=== PATIENT | female | born 1955 | race Asian ===

== ENCOUNTER 2016-10-24 07:39 | Inpatient (IN) | payer MEDICARE, MEDICAID ==
[~2016-10-24] VITALS: Ht 160 cm; Wt 71.2 kg
[~2016-10-24 07:39] MED LIST: AZIT1PAC8 PO; CARV25 PO; FLUT1DIS IH; INSNOV SQ; INSU100V12 SQ; LISI-662 PO; LURA80 PO; METF500T4 PO; OMEP20 PO; PRED20 PO; SIMV5TAB6 PO
[2016-10-24 07:51] LABS: GLUCOSE,POINT OF CARE 385 MG/DL (70-110)
[2016-10-24] MEDS ORDERED: SODIUM CHLORIDE 0.9% 500 ML IV ONE (08:00)
[2016-10-24] MEDS ORDERED: INSULIN REGULAR, HUMAN 100 UNITS/ML IVP ONE ×2 (08:00→12:00)
[2016-10-24] MEDS ORDERED: ONDANSETRON HCL 4 MG/2 ML VIAL IVP ONE (08:00)
[2016-10-24] MEDS ORDERED: ALBUTEROL SULFATE 2.5 MG/0.5 ML NEB SOLUTION NEB ONE (08:15)
[2016-10-24] MEDS ORDERED: MORPHINE SULFATE 2 MG/ML SYRINGE IVP ONE (08:15)
[2016-10-24] MEDS ORDERED: MORPHINE SULFATE 4 MG/ML SYRINGE IVP ONE (08:15)
[2016-10-24] MEDS ORDERED: IPRATROPIUM BROMIDE 0.5 MG/2.5 ML NEB SOLUTION NEB ONE (08:15)
[2016-10-24 08:30] LABS: BASOPHILS # (AUTO) 0.03 K/uL (0.00-0.20); BASOPHILS % (AUTO) 0.4 % (0.0-2.0); EOSINOPHILS # (AUTO) 0.07 K/uL (0.00-0.70); EOSINOPHILS % (AUTO) 1.06 % (1.0-6.0); HEMATOCRIT 42.9 % (36-46); HEMOGLOBIN 14.5 g/dL (12.0-16.0); LYMPHOCYTES # (AUTO) 1.7 K/uL (1.0-4.8); LYMPHOCYTES % (AUTO) 24.8 % (22.0-44.0); MEAN CORPUSCULAR HEMOGLOBIN 28.5 pg (26.0-34.0); MEAN CORPUSCULAR HGB CONC 33.9 G/dL (31.0-37.0); MEAN CORPUSCULAR VOLUME 84 fL (80-100); MONOCYTES # (AUTO) 0.5 K/uL (0.1-1.0); MONOCYTES % (AUTO) 7.9 % (2.0-9.0); NEUTROPHILS # (AUTO) 4.4 K/uL (1.8-7.7); NEUTROPHILS % (AUTO) 65.9 % (40.0-70.0); PLATELET COUNT (AUTO) 283 K/uL (150-450); RED CELL DISTRIBUTION WIDTH 14.6 % (11.5-14.5); WHITE BLOOD COUNT (AUTO) 6.7 K/uL (4.5-11.0)
[2016-10-24 08:37] LABS: CALCIUM, TOTAL 8.7 mg/dL (8.8-10.5); CREATININE 1.15 mg/dL (0.60-1.30); POTASSIUM 3.8 mmol/L (3.5-5.1)
[2016-10-24 08:43] LABS: ALBUMIN 2.7 g/dL (3.4-5.0); BILIRUBIN,TOTAL 0.6 mg/dL (0.1-1.0); TOTAL PROTEIN, SERUM 7.7 g/dL (6.4-8.2)
[2016-10-24] MEDS ORDERED: 0.9% SODIUM CHLORIDE 5 ML NEB SOLUTION NEB ONE ×2 (09:02→19:02)
[2016-10-24 10:06] LABS: APPEARANCE,URINE CLEAR (CLEAR); GLUCOSE, URINE (UA) >=1000 mg/dL (NEGATIVE); KETONES,URINE 15 mg/dL (NEGATIVE); LEUKOCYTE ESTERASE ,URINE NEGATIVE (NEGATIVE); OCCULT BLOOD,URINE NEGATIVE (NEGATIVE); PROTEIN,URINE SEE CONFIRM (NEGATIVE)
[2016-10-24 10:08] LABS: ADD UA MICROSCOPIC YES
[2016-10-24 10:21] LABS: SULFOSALICYLIC ACID,URINE 2+ (Negative)
[2016-10-24 10:22] LABS: RBC,URINE 0-2 /HPF (0-2); SQUAMOUS EPITHELIAL CELL,UR Few /LPF (None Seen)
[2016-10-24] MEDS ORDERED: FUROSEMIDE 40 MG/4 ML VIAL IVP ONE (11:00)
[2016-10-24 12:01] LABS: GLUCOSE,POINT OF CARE 421 MG/DL (70-110)
[2016-10-24] MEDS ORDERED: INSULIN ASPART 100 UNITS/ML SQ PRN ×2 (12:30→15:30)
[2016-10-24] MEDS ORDERED: 0.9% SODIUM CHLORIDE 10 ML SYRINGE IVP PRN (12:30)
[2016-10-24] MEDS ORDERED: ONDANSETRON HCL 4 MG/2 ML VIAL IVP PRN ×2 (12:30→15:30)
[2016-10-24] MEDS ORDERED: DEXTROSE 50%-WATER 25 GM/50 ML SYRINGE IVP PRN ×2 (12:30→15:30)
[2016-10-24] MEDS ORDERED: ACETAMINOPHEN 325 MG TABLET PO PRN (12:30)
[2016-10-24 12:55] VITALS: BP 102/67
[2016-10-24] MEDS ORDERED: PNEUMOCOCCAL VACCINE POLYVALENT 0.5 ML VIAL [PPSV23] IM ONE (13:00)
[2016-10-24] MEDS ORDERED: INFLUENZA VIRUS VACCINE QVS 2016-17 (3YR+)/PF 60 MCG/0.5 ML SYRINGE IM ONE (13:00)
[2016-10-24] MEDS ORDERED: IPRATROPIUM BROMIDE 0.5 MG/2.5 ML NEB SOLUTION NEB SCH (15:00)
[2016-10-24] MEDS ORDERED: ALBUTEROL SULFATE 2.5 MG/0.5 ML NEB SOLUTION NEB SCH (15:00)
[2016-10-24 15:06] VITALS: BP 115/76
[2016-10-24] MEDS ORDERED: ALBUTEROL SULFATE 2.5 MG/0.5 ML NEB SOLUTION NEB PRN (15:30)
[2016-10-24] MEDS ORDERED: ZOLPIDEM TARTRATE 5 MG TABLET PO PRN (15:30)
[2016-10-24] MEDS ORDERED: MORPHINE SULFATE 4 MG/ML SYRINGE IVP PRN (15:30)
[2016-10-24] MEDS ORDERED: BISACODYL 10 MG RECTAL RECTAL SUPPOSITORY PR PRN (15:30)
[2016-10-24] MEDS ORDERED: IPRATROPIUM BROMIDE 0.5 MG/2.5 ML NEB SOLUTION NEB PRN (15:30)
[2016-10-24] MEDS ORDERED: HYDROCODONE/ACETAMINOPHEN 5-325 MG TABLET PO PRN (15:30)
[2016-10-24] MEDS ORDERED: MAGNESIUM HYDROXIDE SUSPENSION 30 ML UDCUP PO PRN (15:30)
[2016-10-24] MEDS: HEPARIN SODIUM,PORCINE 5,000 UNITS/ML VIAL SQ SCH (16:30)
[2016-10-24] MEDS: ACETAMINOPHEN 325 MG TABLET PO PRN (16:59)
[2016-10-24] MEDS ORDERED: INSULIN ASPART 100 UNITS/ML SQ ONE (17:30)
[2016-10-24] MEDS: MethylPREDNISolone SOD SUCC 125 MG/2 ML VIAL IVP SCH (17:38)
[2016-10-24] MEDS: IPRATROPIUM BROMIDE 0.5 MG/2.5 ML NEB SOLUTION NEB SCH ×2 (19:08→22:39)
[2016-10-24] MEDS: ALBUTEROL SULFATE 2.5 MG/0.5 ML NEB SOLUTION NEB SCH ×2 (19:09→22:39)
[2016-10-24 19:56] VITALS: BP 114/83
[2016-10-24] MEDS: DOCUSATE SODIUM 100 MG CAPSULE PO SCH (20:13)
[2016-10-24] MEDS: SIMVASTATIN 5 MG TABLET PO SCH (20:13)
[2016-10-24] MEDS: LURASIDONE HCL 80 MG TABLET PO SCH (20:13)
[2016-10-24] MEDS: CARVEDILOL 25 MG TABLET PO SCH (20:13)
[2016-10-24] MEDS: INSULIN DETEMIR 100 UNITS/ML SQ SCH (20:14)
[2016-10-24] MEDS: INSULIN ASPART 100 UNITS/ML SQ PRN (20:18)
[2016-10-25] VITALS (8 sets, daily range): BP systolic 94–112; BP diastolic 45–74
[2016-10-25] MEDS: HEPARIN SODIUM,PORCINE 5,000 UNITS/ML VIAL SQ SCH ×4 (01:45→23:40)
[2016-10-25] MEDS: MethylPREDNISolone SOD SUCC 125 MG/2 ML VIAL IVP SCH ×5 (01:46→23:35)
[2016-10-25] MEDS: IPRATROPIUM BROMIDE 0.5 MG/2.5 ML NEB SOLUTION NEB SCH ×6 (03:00→23:12)
[2016-10-25] MEDS: ALBUTEROL SULFATE 2.5 MG/0.5 ML NEB SOLUTION NEB SCH ×6 (03:00→23:12)
[2016-10-25] MEDS: INSULIN ASPART 100 UNITS/ML SQ PRN ×3 (05:42→20:39)
[2016-10-25 07:37] LABS: BASOPHILS # (AUTO) 0.03 K/uL (0.00-0.20); BASOPHILS % (AUTO) 0.5 % (0.0-2.0); EOSINOPHILS % (AUTO) 0 % (1.0-6.0); HEMATOCRIT 41.9 % (36-46); HEMOGLOBIN 13.7 g/dL (12.0-16.0); LYMPHOCYTES # (AUTO) 0.8 K/uL (1.0-4.8); LYMPHOCYTES % (AUTO) 12.2 % (22.0-44.0); MEAN CORPUSCULAR HEMOGLOBIN 27.9 pg (26.0-34.0); MEAN CORPUSCULAR HGB CONC 32.7 G/dL (31.0-37.0); MEAN CORPUSCULAR VOLUME 85 fL (80-100); MONOCYTES % (AUTO) 0.4 % (2.0-9.0); NEUTROPHILS # (AUTO) 5.7 K/uL (1.8-7.7); PLATELET COUNT (AUTO) 292 K/uL (150-450); RED BLOOD CELL COUNT(AUTO) 4.91 MIL/uL (4.00-5.20); WHITE BLOOD COUNT (AUTO) 6.6 K/uL (4.5-11.0)
[2016-10-25 07:39] LABS: NEUTROPHILS % (AUTO) 86.9 % (40.0-70.0)
[2016-10-25] MEDS: PANTOPRAZOLE SODIUM 40 MG/VIAL IVP SCH (07:53)
[2016-10-25] MEDS: DOCUSATE SODIUM 100 MG CAPSULE PO SCH ×2 (07:54→20:43)
[2016-10-25] MEDS: ACETAMINOPHEN 325 MG TABLET PO PRN ×2 (08:00→13:55)
[2016-10-25 08:08] LABS: ALBUMIN 2.5 g/dL (3.4-5.0); BILIRUBIN,TOTAL 0.5 mg/dL (0.1-1.0); CALCIUM, TOTAL 8.6 mg/dL (8.8-10.5); CREATININE 1.12 mg/dL (0.60-1.30); POTASSIUM 3.8 mmol/L (3.5-5.1); TOTAL PROTEIN, SERUM 7.5 g/dL (6.4-8.2)
[2016-10-25] MEDS: LISINOPRIL 20 MG TABLET PO SCH (09:00)
[2016-10-25] MEDS: FUROSEMIDE 20 MG TABLET PO SCH (09:55)
[2016-10-25] MEDS: SPIRONOLACTONE 25 MG TABLET PO SCH (09:56)
[2016-10-25] MEDS: INSULIN DETEMIR 100 UNITS/ML SQ SCH ×2 (10:01→20:40)
[2016-10-25] MEDS: CARVEDILOL 25 MG TABLET PO SCH ×2 (13:54→20:10)
[2016-10-25] MEDS ORDERED: INSULIN ASPART 100 UNITS/ML SQ ONE (18:00)
[2016-10-25] MEDS: SIMVASTATIN 5 MG TABLET PO SCH (20:09)
[2016-10-25] MEDS: LURASIDONE HCL 80 MG TABLET PO SCH (20:09)
[2016-10-26] MEDS: IPRATROPIUM BROMIDE 0.5 MG/2.5 ML NEB SOLUTION NEB SCH ×6 (03:05→23:00)
[2016-10-26] MEDS: ALBUTEROL SULFATE 2.5 MG/0.5 ML NEB SOLUTION NEB SCH ×6 (03:05→23:00)
[2016-10-26 04:07] LABS: GLUCOSE COMMENT 1 Received Meds; GLUCOSE,POINT OF CARE 521 MG/DL (70-110)
[2016-10-26 04:07] LABS: GLUCOSE,POINT OF CARE 379 MG/DL (70-110)
[2016-10-26 04:30] VITALS: BP 100/74
[2016-10-26] MEDS: MethylPREDNISolone SOD SUCC 125 MG/2 ML VIAL IVP SCH (05:48)
[2016-10-26] MEDS: INSULIN ASPART 100 UNITS/ML SQ PRN ×3 (05:52→20:59)
[2016-10-26 07:08] LABS: BASOPHILS # (AUTO) 0.06 K/uL (0.00-0.20); BASOPHILS % (AUTO) 0.4 % (0.0-2.0); EOSINOPHILS % (AUTO) 0.01 % (1.0-6.0); HEMATOCRIT 39.3 % (36-46); HEMOGLOBIN 12.9 g/dL (12.0-16.0); LYMPHOCYTES % (AUTO) 6.2 % (22.0-44.0); MEAN CORPUSCULAR HEMOGLOBIN 28.1 pg (26.0-34.0); MEAN CORPUSCULAR HGB CONC 32.9 G/dL (31.0-37.0); MEAN CORPUSCULAR VOLUME 85 fL (80-100); MONOCYTES # (AUTO) 0.3 K/uL (0.1-1.0); NEUTROPHILS # (AUTO) 14.7 K/uL (1.8-7.7); PLATELET COUNT (AUTO) 303 K/uL (150-450); RED CELL DISTRIBUTION WIDTH 15.3 % (11.5-14.5); WHITE BLOOD COUNT (AUTO) 16.1 K/uL (4.5-11.0)
[2016-10-26 07:18] LABS: ALBUMIN 2.6 g/dL (3.4-5.0); BILIRUBIN,TOTAL 0.3 mg/dL (0.1-1.0); CALCIUM, TOTAL 8.8 mg/dL (8.8-10.5); CREATININE 1.16 mg/dL (0.60-1.30); POTASSIUM 4.1 mmol/L (3.5-5.1); TOTAL PROTEIN, SERUM 7.3 g/dL (6.4-8.2)
[2016-10-26 07:32] LABS: NEUTROPHILS % (AUTO) 91.5 % (40.0-70.0)
[2016-10-26 08:12] VITALS: BP 109/59
[2016-10-26] MEDS: PANTOPRAZOLE SODIUM 40 MG/VIAL IVP SCH (08:31)
[2016-10-26] MEDS: DOCUSATE SODIUM 100 MG CAPSULE PO SCH ×2 (08:31→20:52)
[2016-10-26] MEDS: LISINOPRIL 20 MG TABLET PO SCH (08:31)
[2016-10-26] MEDS: FUROSEMIDE 20 MG TABLET PO SCH (08:31)
[2016-10-26] MEDS: SPIRONOLACTONE 25 MG TABLET PO SCH (08:31)
[2016-10-26] MEDS: HEPARIN SODIUM,PORCINE 5,000 UNITS/ML VIAL SQ SCH ×3 (08:32→23:48)
[2016-10-26] MEDS: INSULIN DETEMIR 100 UNITS/ML SQ SCH ×2 (08:40→20:58)
[2016-10-26] MEDS: CARVEDILOL 25 MG TABLET PO SCH ×2 (09:00→21:00)
[2016-10-26] MEDS ORDERED: MethylPREDNISolone SOD SUCC 125 MG/2 ML VIAL IVP SCH (12:00)
[2016-10-26] MEDS ORDERED: INSULIN ASPART 100 UNITS/ML SQ ONE (12:00)
[2016-10-26 12:18] VITALS: BP 98/51
[2016-10-26 16:03] VITALS: BP 108/68
[2016-10-26] MEDS ORDERED: AZIT250T6 PO ×2 (17:42→17:43)
[2016-10-26] MEDS ORDERED: OMEP20 PO (17:43)
[2016-10-26] MEDS ORDERED: INSNOV SQ (17:43)
[2016-10-26] MEDS ORDERED: METF500T4 PO (17:43)
[2016-10-26] MEDS ORDERED: FLUT1DIS IH (17:43)
[2016-10-26] MEDS: PredniSONE 20 MG TABLET PO SCH (17:57)
[2016-10-26 18:08] LABS: GLUCOSE,POINT OF CARE 387 MG/DL (70-110)
[2016-10-26 20:03] VITALS: BP 100/57
[2016-10-26] MEDS: SIMVASTATIN 5 MG TABLET PO SCH (20:52)
[2016-10-26] MEDS: LURASIDONE HCL 80 MG TABLET PO SCH (20:52)
[2016-10-26 23:54] VITALS: BP 110/65
[2016-10-27] MEDS: ALBUTEROL SULFATE 2.5 MG/0.5 ML NEB SOLUTION NEB SCH ×4 (02:31→14:59)
[2016-10-27] MEDS: IPRATROPIUM BROMIDE 0.5 MG/2.5 ML NEB SOLUTION NEB SCH ×4 (02:31→14:59)
[2016-10-27 04:40] VITALS: BP 127/70
[2016-10-27] MEDS: INSULIN ASPART 100 UNITS/ML SQ PRN ×2 (06:10→12:06)
[2016-10-27 07:12] LABS: GLUCOSE COMMENT 1 Received Meds; GLUCOSE,POINT OF CARE 443 MG/DL (70-110)
[2016-10-27 07:12] LABS: GLUCOSE COMMENT 1 Received Meds; GLUCOSE,POINT OF CARE 120 MG/DL (70-110)
[2016-10-27 07:31] VITALS: BP 107/71
[2016-10-27 07:58] LABS: EOSINOPHILS % (AUTO) 0 % (1.0-6.0); HEMATOCRIT 39.8 % (36-46); HEMOGLOBIN 12.7 g/dL (12.0-16.0); LYMPHOCYTES # (AUTO) 1.3 K/uL (1.0-4.8); LYMPHOCYTES % (AUTO) 8.9 % (22.0-44.0); MEAN CORPUSCULAR HEMOGLOBIN 27.5 pg (26.0-34.0); MEAN CORPUSCULAR HGB CONC 31.8 G/dL (31.0-37.0); MEAN CORPUSCULAR VOLUME 87 fL (80-100); MONOCYTES # (AUTO) 0.8 K/uL (0.1-1.0); MONOCYTES % (AUTO) 5.2 % (2.0-9.0); PLATELET COUNT (AUTO) 291 K/uL (150-450); RED CELL DISTRIBUTION WIDTH 14.8 % (11.5-14.5); WHITE BLOOD COUNT (AUTO) 15.1 K/uL (4.5-11.0)
[2016-10-27 08:14] LABS: NEUTROPHILS % (AUTO) 85.9 % (40.0-70.0)
[2016-10-27 08:29] LABS: ALBUMIN 2.6 g/dL (3.4-5.0); BILIRUBIN,TOTAL 0.3 mg/dL (0.1-1.0); CALCIUM, TOTAL 8.8 mg/dL (8.8-10.5); CREATININE 1.11 mg/dL (0.60-1.30); POTASSIUM 3.6 mmol/L (3.5-5.1)
[2016-10-27] MEDS: SPIRONOLACTONE 25 MG TABLET PO SCH (08:39)
[2016-10-27] MEDS: DOCUSATE SODIUM 100 MG CAPSULE PO SCH (08:39)
[2016-10-27] MEDS: PANTOPRAZOLE SODIUM 40 MG/VIAL IVP SCH (08:39)
[2016-10-27] MEDS: HEPARIN SODIUM,PORCINE 5,000 UNITS/ML VIAL SQ SCH (08:39)
[2016-10-27] MEDS: FUROSEMIDE 20 MG TABLET PO SCH (08:39)
[2016-10-27] MEDS: PredniSONE 20 MG TABLET PO SCH (08:39)
[2016-10-27] MEDS: LISINOPRIL 20 MG TABLET PO SCH (08:39)
[2016-10-27] MEDS: CARVEDILOL 25 MG TABLET PO SCH (08:48)
[2016-10-27 08:53] LABS: HEMOGLOBIN A1C 13.1 % (4.5-6.2)
[2016-10-27] MEDS ORDERED: INSULIN DETEMIR 100 UNITS/ML SQ SCH (09:00)
[2016-10-27 09:22] LABS: GLUCOSE COMMENT 1 Received Meds; GLUCOSE,POINT OF CARE 245 MG/DL (70-110)
[2016-10-27 11:23] VITALS: BP 128/87
[2016-10-27] MEDS ORDERED: SPIR25 PO (14:45)
[2016-10-27] MEDS ORDERED: ADV100 IH (14:45)
[2016-10-27 15:00] VITALS: BP 116/66
[2016-10-27 23:42] LABS: GLUCOSE COMMENT 1 Received Meds; GLUCOSE,POINT OF CARE 198 MG/DL (70-110)
== END 2016-10-27 15:10 | disposition home or self-care (01) | DRG 291 ==
LOC: EMS 07:40 → 5S 11:44
PROVIDERS: ADMIT Hospitalist; ATTEND Hospitalist
DX: I11.0 Hypertensive heart disease with heart failure (principal); E43 Unspecified severe protein-calorie malnutrition; J44.1 Chronic obstructive pulmonary disease with (acute) exacerbation; J45.901 Unspecified asthma with (acute) exacerbation; I50.23 Acute on chronic systolic (congestive) heart failure; Z53.29 Procedure and treatment not carried out because of patient's decision for other reasons; E78.5 Hyperlipidemia, unspecified; I25.10 Atherosclerotic heart disease of native coronary artery without angina pectoris; E78.00 Pure hypercholesterolemia, unspecified; E11.65 Type 2 diabetes mellitus with hyperglycemia; Z88.8 Allergy status to other drugs, medicaments and biological substances; Z88.5 Allergy status to narcotic agent; Z79.4 Long term (current) use of insulin; Z79.899 Other long term (current) drug therapy; Z68.27 Body mass index [BMI] 27.0-27.9, adult; Z98.51 Tubal ligation status; Z95.0 Presence of cardiac pacemaker; Z98.890 Other specified postprocedural states
CPT/HCPCS: 74022; 82962; 83036; 87081; 90471; 93005; 94640; 96361; 96374; 96375; 96376; 99285; C9113; J1644; J1815; J1940; J2270; J2405; J2930; J7040

== ENCOUNTER 2016-10-28 00:34 | Inpatient (IN) | payer MEDICARE, MEDICAID ==
[~2016-10-28] VITALS: Ht 160 cm; Wt 72.9 kg
[~2016-10-28 00:34] MED LIST changes: +ADV100 IH; -AZIT1PAC8 PO; -PRED20 PO; +SPIR25 PO
[2016-10-28 00:52] LABS: GLUCOSE,POINT OF CARE 224 MG/DL (70-110)
[2016-10-28] MEDS ORDERED: ALBUTEROL SULFATE 2.5 MG/0.5 ML NEB SOLUTION NEB ONE (01:15)
[2016-10-28] MEDS ORDERED: IPRATROPIUM BROMIDE 0.5 MG/2.5 ML NEB SOLUTION NEB ONE (01:15)
[2016-10-28 01:16] LABS: BASOPHILS % (AUTO) 0.1 % (0.0-2.0); EOSINOPHILS % (AUTO) 0 % (1.0-6.0); HEMATOCRIT 43.1 % (36-46); HEMOGLOBIN 13.8 g/dL (12.0-16.0); LYMPHOCYTES # (AUTO) 1.5 K/uL (1.0-4.8); LYMPHOCYTES % (AUTO) 8.9 % (22.0-44.0); MEAN CORPUSCULAR HEMOGLOBIN 27.4 pg (26.0-34.0); MEAN CORPUSCULAR HGB CONC 31.9 G/dL (31.0-37.0); MEAN CORPUSCULAR VOLUME 86 fL (80-100); MONOCYTES # (AUTO) 0.5 K/uL (0.1-1.0); MONOCYTES % (AUTO) 2.8 % (2.0-9.0); NEUTROPHILS # (AUTO) 14.8 K/uL (1.8-7.7); PLATELET COUNT (AUTO) 317 K/uL (150-450); RED BLOOD CELL COUNT(AUTO) 5.02 MIL/uL (4.00-5.20); RED CELL DISTRIBUTION WIDTH 15.1 % (11.5-14.5); WHITE BLOOD COUNT (AUTO) 16.7 K/uL (4.5-11.0)
[2016-10-28 01:22] LABS: NEUTROPHILS % (AUTO) 88.2 % (40.0-70.0)
[2016-10-28 01:29] LABS: ANION GAP 11 mmol/L (8-16); CALCIUM, TOTAL 8.5 mg/dL (8.8-10.5); CARBON DIOXIDE 27 mmol/L (22-29); CHLORIDE 99 mmol/L (98-107); CREATININE 1.25 mg/dL (0.60-1.30); GLOMERULAR FILTR. RATE CALC 43 mL/min (>60); POTASSIUM 3.8 mmol/L (3.5-5.1); SODIUM SERUM 137 mmol/L (136-145); UREA NITROGEN, BLOOD 30 mg/dL (7-18)
[2016-10-28 01:35] LABS: ALANINE AMINOTRANSFERASE 24 U/L (12-78); ALBUMIN 2.9 g/dL (3.4-5.0); ASPARTATE AMINOTRANSFERASE 17 U/L (15-37); BILIRUBIN,TOTAL 0.4 mg/dL (0.1-1.0); CREATINE KINASE, TOTAL 66 U/L (26-192); TOTAL PROTEIN, SERUM 7.5 g/dL (6.4-8.2)
[2016-10-28 01:59] LABS: GLUCOSE, URINE (UA) 250 mg/dL (NEGATIVE); KETONES,URINE NEGATIVE (NEGATIVE); LEUKOCYTE ESTERASE ,URINE LARGE (NEGATIVE); OCCULT BLOOD,URINE TRACE (NEGATIVE); PROTEIN,URINE POS 1+ (NEGATIVE)
[2016-10-28 02:00] LABS: ADD UA MICROSCOPIC YES; APPEARANCE,URINE HAZY (CLEAR)
[2016-10-28] MEDS ORDERED: LEVALBUTEROL HCL 1.25 MG/0.5 ML NEB SOLUTION NEB ONE ×2 (02:00→03:00)
[2016-10-28] MEDS ORDERED: 0.9% SODIUM CHLORIDE 5 ML NEB SOLUTION NEB ONE ×2 (02:06→03:03)
[2016-10-28 02:33] LABS: SQUAMOUS EPITHELIAL CELL,UR Few /LPF (None Seen)
[2016-10-28 02:40] LABS: B-TYPE NATRIURETIC PEPTIDE 1030 pg/mL (0-100)
[2016-10-28] MEDS ORDERED: LORazepam 2 MG/ML VIAL ONE (02:49)
[2016-10-28] MEDS ORDERED: LORazepam 2 MG/ML VIAL IVP ONE ×2 (03:00→04:15)
[2016-10-28] MEDS ORDERED: FUROSEMIDE 40 MG/4 ML VIAL IVP ONE (03:00)
[2016-10-28 04:30] LABS: ABG A-A DIFF O2 145.1 mmHg (10-20.0); ABG BASE EXCESS 6.1 mmol/L (-2.0-3.0); ABG OXYHEMOGLOBIN 96.5 % (94.0-100.0); ABG PCO2 35 mmHg (35-45); ABG PH 7.529 (7.35-7.450); TEMPERATURE, FAHRENHEIT, BG 98.6 FAHREN (96.0-98.6)
[2016-10-28 04:31] LABS: ALLEN TEST, BLOOD GAS POS; IPAP, BG 14 cm H2O
[2016-10-28] MEDS ORDERED: MIDAZOLAM HCL 5 MG/ML VIAL ONE (05:43)
[2016-10-28] MEDS ORDERED: METOPROLOL TARTRATE 5 MG/5 ML VIAL ONE ×2 (05:52→06:01)
[2016-10-28] MEDS ORDERED: AMIODARONE HCL 360 MG in DEXTROSE 5%-WATER 242.8 ML IV ONE (06:00)
[2016-10-28] MEDS ORDERED: POTASSIUM CHL 10 MEQ/WATER 50 ML IV ONE (06:15)
[2016-10-28] MEDS ORDERED: ESMOLOL HCL 2500 MG/NACL 250 ML IV PRN (06:30)
[2016-10-28] MEDS ORDERED: ESMOLOL HCL 10 MG/ML 10 ML VIAL IVP ONE (06:30)
[2016-10-28 08:01] LABS: ABG A-A DIFF O2 132.7 mmHg (10-20.0); ABG BASE EXCESS 2.2 mmol/L (-2.0-3.0); ABG HCO3 27.6 mmol/L (22.0-26.0); ABG OXYHEMOGLOBIN 97.7 % (94.0-100.0); ABG PCO2 27 mmHg (35-45); ABG PH 7.574 (7.35-7.450); TEMPERATURE, FAHRENHEIT, BG 98.6 FAHREN (96.0-98.6)
[2016-10-28] MEDS: FUROSEMIDE 40 MG/4 ML VIAL IVP SCH ×2 (08:01→21:37)
[2016-10-28 08:03] LABS: ALLEN TEST, BLOOD GAS Positive
[2016-10-28 08:04] LABS: IPAP, BG 16 cm H2O
[2016-10-28] MEDS: AMIODARONE HCL 200 MG TABLET PO SCH ×4 (09:00→21:37)
[2016-10-28] MEDS ORDERED: SODIUM CHLORIDE 0.9% 250 ML IV ONE (10:30)
[2016-10-28] MEDS ORDERED: PHENYLEPHRINE 200 MG/D5%-WATER 250 ML IV PRN (10:45)
[2016-10-28] MEDS ORDERED: AMIODARONE HCL 540 MG in DEXTROSE 5%-WATER 239.2 ML IV ONE (12:00)
[2016-10-28] MEDS ORDERED: HEPARIN SODIUM 25000 UNITS/D5W 250 ML IV PRN ×2 (12:00→12:04)
[2016-10-28] MEDS ORDERED: HEPARIN SODIUM,PORCINE 5,000 UNITS/ML VIAL IVP ONE (12:15)
[2016-10-28] MEDS ORDERED: HEPARIN SODIUM,PORCINE 5,000 UNITS/ML VIAL IVP PRN ×2 (12:15)
[2016-10-28 12:41] LABS: BASOPHILS % (AUTO) 0.1 % (0.0-2.0); EOSINOPHILS % (AUTO) 0 % (1.0-6.0); HEMATOCRIT 42.2 % (36-46); HEMOGLOBIN 13.7 g/dL (12.0-16.0); LYMPHOCYTES # (AUTO) 1.2 K/uL (1.0-4.8); LYMPHOCYTES % (AUTO) 5.4 % (22.0-44.0); MEAN CORPUSCULAR HEMOGLOBIN 27.7 pg (26.0-34.0); MEAN CORPUSCULAR HGB CONC 32.6 G/dL (31.0-37.0); MEAN CORPUSCULAR VOLUME 85 fL (80-100); MONOCYTES # (AUTO) 1.2 K/uL (0.1-1.0); MONOCYTES % (AUTO) 5.2 % (2.0-9.0); NEUTROPHILS # (AUTO) 20.4 K/uL (1.8-7.7); NEUTROPHILS % (AUTO) 89.3 % (40.0-70.0); PLATELET COUNT (AUTO) 281 K/uL (150-450); RBC MORPHOLOGY COMMENT NORMAL RBC MORPH; RED BLOOD CELL COUNT(AUTO) 4.97 MIL/uL (4.00-5.20); RED CELL DISTRIBUTION WIDTH 14.8 % (11.5-14.5); WHITE BLOOD COUNT (AUTO) 22.9 K/uL (4.5-11.0)
[2016-10-28 12:51] LABS: PROTHROMBIN TIME 10.9 SEC (9.4-11.6)
[2016-10-28] MEDS ORDERED: MAGNESIUM HYDROXIDE SUSPENSION 30 ML UDCUP PO PRN (13:00)
[2016-10-28] MEDS ORDERED: ZOLPIDEM TARTRATE 5 MG TABLET PO PRN (13:00)
[2016-10-28] MEDS ORDERED: BISACODYL 10 MG RECTAL RECTAL SUPPOSITORY PR PRN (13:00)
[2016-10-28] MEDS ORDERED: ONDANSETRON HCL 4 MG/2 ML VIAL IVP PRN (13:00)
[2016-10-28] MEDS ORDERED: CefTRIAXone 1 GM/DEXTROSE 50 ML IV SCH (13:00)
[2016-10-28] MEDS ORDERED: HYDROCODONE/ACETAMINOPHEN 5-325 MG TABLET PO PRN (13:00)
[2016-10-28] MEDS: CefTRIAXone 1 GM/DEXTROSE 50 ML IV SCH (14:38)
[2016-10-28] MEDS: HEPARIN SODIUM,PORCINE 5,000 UNITS/ML VIAL SQ SCH (16:00)
[2016-10-28 17:00] VITALS: BP 140/90
[2016-10-28 20:00] VITALS: BP 144/91
[2016-10-28] MEDS: DOCUSATE SODIUM 100 MG CAPSULE PO SCH ×2 (21:00→21:37)
[2016-10-28] MEDS: SIMVASTATIN 5 MG TABLET PO SCH (21:00)
[2016-10-28] MEDS: INSULIN DETEMIR 100 UNITS/ML SQ SCH (21:40)
[2016-10-28] MEDS ORDERED: 0.9% SODIUM CHLORIDE 10 ML SYRINGE IVP PRN (22:15)
[2016-10-29] VITALS (20 sets, daily range): BP systolic 63–148; BP diastolic 41–87
[2016-10-29] MEDS: MORPHINE SULFATE 2 MG/ML SYRINGE IVP PRN ×2 (03:44→14:09)
[2016-10-29] MEDS: AMIODARONE HCL 750 MG in DEXTROSE 5%-WATER 485 ML IV SCH (05:39)
[2016-10-29 05:47] LABS: BASOPHILS % (AUTO) 0.1 % (0.0-2.0); EOSINOPHILS % (AUTO) 0.1 % (1.0-6.0); HEMATOCRIT 43.4 % (36-46); HEMOGLOBIN 13.9 g/dL (12.0-16.0); LYMPHOCYTES # (AUTO) 1.1 K/uL (1.0-4.8); LYMPHOCYTES % (AUTO) 8.3 % (22.0-44.0); MEAN CORPUSCULAR HEMOGLOBIN 27.5 pg (26.0-34.0); MEAN CORPUSCULAR VOLUME 86 fL (80-100); MONOCYTES # (AUTO) 0.6 K/uL (0.1-1.0); MONOCYTES % (AUTO) 4.7 % (2.0-9.0); PLATELET COUNT (AUTO) 218 K/uL (150-450); RED BLOOD CELL COUNT(AUTO) 5.04 MIL/uL (4.00-5.20); RED CELL DISTRIBUTION WIDTH 15.4 % (11.5-14.5); WHITE BLOOD COUNT (AUTO) 13.8 K/uL (4.5-11.0)
[2016-10-29 06:04] LABS: ALBUMIN 2.5 g/dL (3.4-5.0); BILIRUBIN,TOTAL 0.8 mg/dL (0.1-1.0); CALCIUM, TOTAL 8.4 mg/dL (8.8-10.5); CREATININE 1.23 mg/dL (0.60-1.30); MAGNESIUM 2.5 mg/dL (1.80-2.40); POTASSIUM 3.1 mmol/L (3.5-5.1); TOTAL PROTEIN, SERUM 7.2 g/dL (6.4-8.2)
[2016-10-29 07:12] LABS: NEUTROPHILS % (AUTO) 86.8 % (40.0-70.0)
[2016-10-29] MEDS ORDERED: DEXTROSE 50%-WATER 25 GM/50 ML SYRINGE IVP PRN (07:15)
[2016-10-29] MEDS: POTASSIUM CHL 10 MEQ/WATER 50 ML IV PRN ×3 (07:49→10:29)
[2016-10-29] MEDS: HEPARIN SODIUM,PORCINE 5,000 UNITS/ML VIAL SQ SCH ×4 (08:00→23:27)
[2016-10-29] MEDS: SPIRONOLACTONE 25 MG TABLET PO SCH (08:03)
[2016-10-29] MEDS: CARVEDILOL 6.25 MG TABLET PO SCH ×2 (08:03→21:00)
[2016-10-29] MEDS: FUROSEMIDE 40 MG/4 ML VIAL IVP SCH ×2 (08:03→20:32)
[2016-10-29] MEDS: DOCUSATE SODIUM 100 MG CAPSULE PO SCH ×2 (08:03→20:33)
[2016-10-29] MEDS: PANTOPRAZOLE SODIUM 40 MG DR TABLET PO SCH (08:04)
[2016-10-29] MEDS: AMIODARONE HCL 200 MG TABLET PO SCH ×3 (08:04→20:33)
[2016-10-29] MEDS: INSULIN DETEMIR 100 UNITS/ML SQ SCH ×2 (08:06→20:34)
[2016-10-29 08:07] LABS: GLUCOSE COMMENT 1 Received Meds; GLUCOSE,POINT OF CARE 351 MG/DL (70-110)
[2016-10-29] MEDS: LISINOPRIL 10 MG TABLET PO SCH (09:00)
[2016-10-29] MEDS ORDERED: IOHEXOL 300 MG/ML 150 ML VIAL ONE (12:23)
[2016-10-29] MEDS ORDERED: SODIUM BICARBONATE 50 MEQ/50 ML VIAL ONE (12:23)
[2016-10-29] MEDS ORDERED: HEPARIN SODIUM 1000 UNITS/NS 500 ML ONE (12:23)
[2016-10-29] MEDS ORDERED: LIDOCAINE HCL/PF 1% 30 ML VIAL ONE (12:23)
[2016-10-29] MEDS ORDERED: AMIODARONE HCL 50 MG/ML 3 ML VIAL ONE (13:03)
[2016-10-29] MEDS ORDERED: HEPARIN SODIUM 2,000 UNITS in HEPARIN SODIUM 1000 UNITS/NS 1,000 ML IARTER ONE (13:17)
[2016-10-29] MEDS ORDERED: SODIUM CHLORIDE 0.9% 500 ML IV ONE (13:17)
[2016-10-29] MEDS ORDERED: AMIODARONE HCL 150 MG in DEXTROSE 5%-WATER 97 ML IV ONE (13:30)
[2016-10-29] MEDS ORDERED: IOHEXOL 300 MG/ML 150 ML VIAL IARTER ONE (13:30)
[2016-10-29] MEDS ORDERED: LIDOCAINE 1% 30 ML/SOD BICARB 8.4% 4 ML SQ ONE (13:30)
[2016-10-29] MEDS ORDERED: PHENYLEPHRINE 200 MG/D5%-WATER 250 ML IV PRN (13:34)
[2016-10-29] MEDS: CefTRIAXone 1 GM/DEXTROSE 50 ML IV SCH (13:54)
[2016-10-29] MEDS: INSULIN ASPART 100 UNITS/ML SQ PRN (18:27)
[2016-10-29 20:32] LABS: GLUCOSE COMMENT 1 Received Meds; GLUCOSE,POINT OF CARE 235 MG/DL (70-110)
[2016-10-29 20:32] LABS: GLUCOSE,POINT OF CARE 29 MG/DL (70-110)
[2016-10-29 20:32] LABS: GLUCOSE COMMENT 1 Received Meds; GLUCOSE,POINT OF CARE 184 MG/DL (70-110)
[2016-10-29] MEDS: SIMVASTATIN 5 MG TABLET PO SCH (20:32)
[2016-10-30] VITALS (7 sets, daily range): BP systolic 85–111; BP diastolic 64–76
[2016-10-30] MEDS: ACETAMINOPHEN 325 MG TABLET PO PRN ×3 (02:10→21:15)
[2016-10-30] MEDS: IPRATROPIUM BROMIDE HFA 17 MCG/PUFF 12.9 GM INHALER IH PRN (02:46)
[2016-10-30 05:36] LABS: ALBUMIN 2.4 g/dL (3.4-5.0); BILIRUBIN,TOTAL 0.4 mg/dL (0.1-1.0); CALCIUM, TOTAL 8.2 mg/dL (8.8-10.5); CREATININE 1.09 mg/dL (0.60-1.30); MAGNESIUM 2.5 mg/dL (1.80-2.40); POTASSIUM 3.1 mmol/L (3.5-5.1)
[2016-10-30] MEDS: AMIODARONE HCL 750 MG in DEXTROSE 5%-WATER 485 ML IV SCH (05:51)
[2016-10-30] MEDS: POTASSIUM CHLORIDE 20 MEQ ER TABLET PO PRN (06:13)
[2016-10-30 06:52] LABS: BASOPHILS % (AUTO) 0.2 % (0.0-2.0); EOSINOPHILS % (AUTO) 0.5 % (1.0-6.0); HEMATOCRIT 41.8 % (36-46); HEMOGLOBIN 13.3 g/dL (12.0-16.0); LYMPHOCYTES # (AUTO) 1.6 K/uL (1.0-4.8); MEAN CORPUSCULAR HEMOGLOBIN 27.7 pg (26.0-34.0); MEAN CORPUSCULAR HGB CONC 31.8 G/dL (31.0-37.0); MEAN CORPUSCULAR VOLUME 87 fL (80-100); NEUTROPHILS # (AUTO) 8.8 K/uL (1.8-7.7); NEUTROPHILS % (AUTO) 76.3 % (40.0-70.0); PLATELET COUNT (AUTO) 191 K/uL (150-450); RED CELL DISTRIBUTION WIDTH 15.2 % (11.5-14.5); WHITE BLOOD COUNT (AUTO) 11.5 K/uL (4.5-11.0)
[2016-10-30] MEDS: DOCUSATE SODIUM 100 MG CAPSULE PO SCH ×2 (07:59→21:18)
[2016-10-30] MEDS: PANTOPRAZOLE SODIUM 40 MG DR TABLET PO SCH (08:00)
[2016-10-30] MEDS: AMIODARONE HCL 200 MG TABLET PO SCH ×3 (08:00→21:18)
[2016-10-30] MEDS: HEPARIN SODIUM,PORCINE 5,000 UNITS/ML VIAL SQ SCH ×3 (08:00→23:17)
[2016-10-30] MEDS: SPIRONOLACTONE 25 MG TABLET PO SCH (08:00)
[2016-10-30] MEDS: FUROSEMIDE 40 MG TABLET PO SCH ×2 (08:00→21:20)
[2016-10-30] MEDS: CARVEDILOL 6.25 MG TABLET PO SCH ×3 (08:00→23:16)
[2016-10-30] MEDS: LISINOPRIL 10 MG TABLET PO SCH (08:01)
[2016-10-30 08:12] LABS: GLUCOSE COMMENT 1 Received Meds; GLUCOSE,POINT OF CARE 93 MG/DL (70-110)
[2016-10-30] MEDS: INSULIN DETEMIR 100 UNITS/ML SQ SCH ×2 (09:00→21:00)
[2016-10-30] MEDS: INSULIN ASPART 100 UNITS/ML SQ PRN ×2 (13:32→17:50)
[2016-10-30] MEDS ORDERED: SODIUM CHLORIDE 0.9% 100 ML ONE (14:06)
[2016-10-30] MEDS: CefTRIAXone 1 GM/DEXTROSE 50 ML IV SCH (14:22)
[2016-10-30] MEDS: GuaiFENesin/D-METHORPHAN [SUGAR-FREE] 200-20MG/10 ML SYRUP UDCUP PO PRN ×2 (14:22→21:16)
[2016-10-30 17:33] LABS: GLUCOSE COMMENT 1 Received Meds; GLUCOSE,POINT OF CARE 148 MG/DL (70-110)
[2016-10-30] MEDS: SIMVASTATIN 5 MG TABLET PO SCH (21:17)
[2016-10-31] VITALS (7 sets, daily range): BP systolic 101–105; BP diastolic 54–75
[2016-10-31] MEDS: INSULIN ASPART 100 UNITS/ML SQ PRN ×3 (06:00→17:10)
[2016-10-31 07:11] LABS: EOSINOPHILS % (AUTO) 0.1 % (1.0-6.0); HEMOGLOBIN 13.4 g/dL (12.0-16.0); LYMPHOCYTES # (AUTO) 0.8 K/uL (1.0-4.8); LYMPHOCYTES % (AUTO) 9.5 % (22.0-44.0); MEAN CORPUSCULAR HEMOGLOBIN 27.8 pg (26.0-34.0); MEAN CORPUSCULAR HGB CONC 32.7 G/dL (31.0-37.0); MEAN CORPUSCULAR VOLUME 85 fL (80-100); MONOCYTES % (AUTO) 11.9 % (2.0-9.0); NEUTROPHILS # (AUTO) 6.7 K/uL (1.8-7.7); NEUTROPHILS % (AUTO) 78.5 % (40.0-70.0); PLATELET COUNT (AUTO) 217 K/uL (150-450); RED BLOOD CELL COUNT(AUTO) 4.82 MIL/uL (4.00-5.20); RED CELL DISTRIBUTION WIDTH 14.8 % (11.5-14.5); WHITE BLOOD COUNT (AUTO) 8.6 K/uL (4.5-11.0)
[2016-10-31 07:34] LABS: ALBUMIN 2.4 g/dL (3.4-5.0); BILIRUBIN,TOTAL 0.7 mg/dL (0.1-1.0); CREATININE 1.06 mg/dL (0.60-1.30); MAGNESIUM 2.1 mg/dL (1.80-2.40); POTASSIUM 3.6 mmol/L (3.5-5.1)
[2016-10-31 07:42] LABS: GLUCOSE COMMENT 1 Received Meds; GLUCOSE,POINT OF CARE 186 MG/DL (70-110)
[2016-10-31] MEDS: HEPARIN SODIUM,PORCINE 5,000 UNITS/ML VIAL SQ SCH ×2 (08:05→16:41)
[2016-10-31] MEDS: DOCUSATE SODIUM 100 MG CAPSULE PO SCH ×2 (08:08→20:41)
[2016-10-31] MEDS: SPIRONOLACTONE 25 MG TABLET PO SCH (08:09)
[2016-10-31] MEDS: GuaiFENesin/D-METHORPHAN [SUGAR-FREE] 200-20MG/10 ML SYRUP UDCUP PO PRN ×2 (08:09→20:41)
[2016-10-31] MEDS: PANTOPRAZOLE SODIUM 40 MG DR TABLET PO SCH (08:09)
[2016-10-31] MEDS: CARVEDILOL 6.25 MG TABLET PO SCH ×2 (08:09→16:00)
[2016-10-31] MEDS: AMIODARONE HCL 200 MG TABLET PO SCH ×3 (08:09→20:41)
[2016-10-31 08:57] LABS: GLUCOSE,POINT OF CARE 116 MG/DL (70-110)
[2016-10-31 08:57] LABS: GLUCOSE COMMENT 1 Received Meds; GLUCOSE,POINT OF CARE 218 MG/DL (70-110)
[2016-10-31] MEDS: LISINOPRIL 10 MG TABLET PO SCH (09:00)
[2016-10-31] MEDS: FUROSEMIDE 40 MG TABLET PO SCH ×2 (09:39→20:41)
[2016-10-31] MEDS: INSULIN DETEMIR 100 UNITS/ML SQ SCH ×2 (09:48→21:00)
[2016-10-31] MEDS: ACETAMINOPHEN 325 MG TABLET PO PRN ×2 (11:01→20:46)
[2016-10-31] MEDS: CefTRIAXone 1 GM/DEXTROSE 50 ML IV SCH (12:04)
[2016-10-31 16:02] LABS: GLUCOSE,POINT OF CARE 71 MG/DL (70-110)
[2016-10-31 16:14] LABS: ABG A-A DIFF O2 47.9 mmHg (10-20.0); ABG BASE EXCESS 8.2 mmol/L (-2.0-3.0); ABG HCO3 31.9 mmol/L (22.0-26.0); ABG PCO2 34 mmHg (35-45); ABG PH 7.564 (7.35-7.450); TEMPERATURE, FAHRENHEIT, BG 98.6 FAHREN (96.0-98.6)
[2016-10-31 16:15] LABS: ALLEN TEST, BLOOD GAS POSITIVE
[2016-10-31] MEDS: NAFCILLIN SODIUM 2 GM in DEXTROSE 5%-WATER 100 ML IV SCH ×2 (16:40→20:55)
[2016-10-31] MEDS: POTASSIUM CHLORIDE 20 MEQ ER TABLET PO PRN (17:04)
[2016-10-31] MEDS: IPRATROPIUM BROMIDE HFA 17 MCG/PUFF 12.9 GM INHALER IH PRN ×2 (19:29→20:42)
[2016-10-31] MEDS: SIMVASTATIN 5 MG TABLET PO SCH (20:41)
[2016-11-01] VITALS (10 sets, daily range): BP systolic 95–119; BP diastolic 46–74
[2016-11-01] MEDS: NAFCILLIN SODIUM 2 GM in DEXTROSE 5%-WATER 100 ML IV SCH ×6 (00:11→20:53)
[2016-11-01] MEDS: BENZONATATE 100 MG CAPSULE PO SCH ×3 (00:12→15:36)
[2016-11-01] MEDS: HEPARIN SODIUM,PORCINE 5,000 UNITS/ML VIAL SQ SCH ×3 (00:13→15:36)
[2016-11-01] MEDS: INSULIN ASPART 100 UNITS/ML SQ PRN ×3 (06:16→17:04)
[2016-11-01 07:26] LABS: HEMATOCRIT 40.5 % (36-46); HEMOGLOBIN 13.1 g/dL (12.0-16.0); MEAN CORPUSCULAR HEMOGLOBIN 27.5 pg (26.0-34.0); MEAN CORPUSCULAR HGB CONC 32.3 G/dL (31.0-37.0); MEAN CORPUSCULAR VOLUME 85 fL (80-100); PLATELET COUNT (AUTO) 197 K/uL (150-450); RED BLOOD CELL COUNT(AUTO) 4.76 MIL/uL (4.00-5.20); RED CELL DISTRIBUTION WIDTH 14.6 % (11.5-14.5)
[2016-11-01 07:33] LABS: GLUCOSE COMMENT 1 Received Meds; GLUCOSE,POINT OF CARE 294 MG/DL (70-110)
[2016-11-01 07:33] LABS: GLUCOSE,POINT OF CARE 111 MG/DL (70-110)
[2016-11-01 07:33] LABS: GLUCOSE COMMENT 1 Received Meds; GLUCOSE,POINT OF CARE 373 MG/DL (70-110)
[2016-11-01] MEDS: CARVEDILOL 6.25 MG TABLET PO SCH ×3 (08:00→15:35)
[2016-11-01] MEDS: DOCUSATE SODIUM 100 MG CAPSULE PO SCH ×2 (08:01→20:53)
[2016-11-01] MEDS: FUROSEMIDE 40 MG TABLET PO SCH (08:01)
[2016-11-01] MEDS: SPIRONOLACTONE 25 MG TABLET PO SCH (08:01)
[2016-11-01] MEDS: AMIODARONE HCL 200 MG TABLET PO SCH ×2 (08:02→15:42)
[2016-11-01] MEDS: PANTOPRAZOLE SODIUM 40 MG DR TABLET PO SCH (08:02)
[2016-11-01 08:32] LABS: CALCIUM, TOTAL 7.8 mg/dL (8.8-10.5); CREATININE 1.24 mg/dL (0.60-1.30); POTASSIUM 3.8 mmol/L (3.5-5.1)
[2016-11-01] MEDS: LISINOPRIL 10 MG TABLET PO SCH (09:00)
[2016-11-01] MEDS: ACETAMINOPHEN 325 MG TABLET PO PRN ×3 (09:11→22:23)
[2016-11-01] MEDS: POTASSIUM CHLORIDE 20 MEQ ER TABLET PO PRN ×2 (09:11→15:36)
[2016-11-01] MEDS: INSULIN DETEMIR 100 UNITS/ML SQ SCH ×2 (09:18→21:00)
[2016-11-01 11:15] LABS: BAND NEUTROPHILS % (MANUAL) 5 % (1-5); EOSINOPHILS % (MANUAL) 1 % (1-6); LYMPHOCYTES % (MANUAL) 25 % (22-44); TOTAL CELLS COUNTED 100
[2016-11-01] MEDS: GuaiFENesin/D-METHORPHAN [SUGAR-FREE] 200-20MG/10 ML SYRUP UDCUP PO PRN (11:31)
[2016-11-01] MEDS: BUDESONIDE 0.5 MG/2 ML NEB SOLUTION NEB SCH ×2 (11:40→20:18)
[2016-11-01] MEDS: SODIUM CHLORIDE 1 GM TABLET PO SCH ×2 (12:09→20:53)
[2016-11-01 20:06] LABS: GLUCOSE COMMENT 1 Received Meds; GLUCOSE,POINT OF CARE 391 MG/DL (70-110)
[2016-11-01 20:12] LABS: GLUCOSE COMMENT 1 Received Meds; GLUCOSE,POINT OF CARE 312 MG/DL (70-110)
[2016-11-01] MEDS: SIMVASTATIN 5 MG TABLET PO SCH (20:53)
[2016-11-02] VITALS (9 sets, daily range): BP systolic 101–143; BP diastolic 54–91
[2016-11-02] MEDS ORDERED: NAFCILLIN SODIUM 2 GM in DEXTROSE 5%-WATER 100 ML IV SCH ×2
[2016-11-02] MEDS: NAFCILLIN SODIUM 2 GM in DEXTROSE 5%-WATER 100 ML IV SCH ×6 (01:00→22:28)
[2016-11-02] MEDS: DOXYCYCLINE 100 MG in DEXTROSE 5%-WATER 100 ML IV SCH ×2 (01:00→13:55)
[2016-11-02] MEDS: HEPARIN SODIUM,PORCINE 5,000 UNITS/ML VIAL SQ SCH ×3 (01:20→16:20)
[2016-11-02] MEDS: FUROSEMIDE 40 MG TABLET PO SCH (01:20)
[2016-11-02] MEDS: BENZONATATE 100 MG CAPSULE PO SCH ×3 (01:20→16:19)
[2016-11-02] MEDS: AMIODARONE HCL 200 MG TABLET PO SCH ×4 (01:20→22:29)
[2016-11-02] MEDS: CARVEDILOL 6.25 MG TABLET PO SCH ×3 (04:40→16:19)
[2016-11-02] MEDS: INSULIN ASPART 100 UNITS/ML SQ PRN ×2 (06:20→12:00)
[2016-11-02 08:18] LABS: BASOPHILS # (AUTO) 0.03 K/uL (0.00-0.20); BASOPHILS % (AUTO) 0.5 % (0.0-2.0); EOSINOPHILS # (AUTO) 0.01 K/uL (0.00-0.70); EOSINOPHILS % (AUTO) 0.16 % (1.0-6.0); HEMATOCRIT 44.4 % (36-46); HEMOGLOBIN 14.7 g/dL (12.0-16.0); LYMPHOCYTES # (AUTO) 1.6 K/uL (1.0-4.8); MEAN CORPUSCULAR HEMOGLOBIN 27.8 pg (26.0-34.0); MEAN CORPUSCULAR HGB CONC 33.2 G/dL (31.0-37.0); MEAN CORPUSCULAR VOLUME 84 fL (80-100); MONOCYTES # (AUTO) 0.9 K/uL (0.1-1.0); MONOCYTES % (AUTO) 14.8 % (2.0-9.0); NEUTROPHILS # (AUTO) 3.3 K/uL (1.8-7.7); NEUTROPHILS % (AUTO) 56.6 % (40.0-70.0); PLATELET COUNT (AUTO) 236 K/uL (150-450); RED CELL DISTRIBUTION WIDTH 14.3 % (11.5-14.5); WHITE BLOOD COUNT (AUTO) 5.8 K/uL (4.5-11.0)
[2016-11-02 08:19] LABS: CALCIUM, TOTAL 8.6 mg/dL (8.8-10.5); CREATININE 1.52 mg/dL (0.60-1.30); POTASSIUM 3.8 mmol/L (3.5-5.1)
[2016-11-02] MEDS: PANTOPRAZOLE SODIUM 40 MG DR TABLET PO SCH (08:44)
[2016-11-02] MEDS: LISINOPRIL 10 MG TABLET PO SCH (08:45)
[2016-11-02] MEDS: DOCUSATE SODIUM 100 MG CAPSULE PO SCH ×2 (08:45→22:28)
[2016-11-02] MEDS: SODIUM CHLORIDE 1 GM TABLET PO SCH ×2 (08:48→22:28)
[2016-11-02] MEDS: INSULIN DETEMIR 100 UNITS/ML SQ SCH ×2 (09:00→22:31)
[2016-11-02] MEDS: BUDESONIDE 0.5 MG/2 ML NEB SOLUTION NEB SCH ×2 (10:07→19:53)
[2016-11-02] MEDS ORDERED: INSULIN ASPART 100 UNITS/ML SQ ONE (12:00)
[2016-11-02] MEDS ORDERED: INDIUM IN-111 OXYQUINOLINE/.5MCL ISOTOPE 1 EA INJ INJ ONE (13:05)
[2016-11-02 18:12] LABS: GLUCOSE COMMENT 1 Doctor Notified; GLUCOSE,POINT OF CARE 406 MG/DL (70-110)
[2016-11-02] MEDS: SIMVASTATIN 5 MG TABLET PO SCH (22:28)
[2016-11-02] MEDS ORDERED: SODIUM CHLORIDE 0.9% 100 ML ONE (22:58)
[2016-11-02 23:06] LABS: GLUCOSE,POINT OF CARE 91 MG/DL (70-110)
[2016-11-03] MEDS: DOXYCYCLINE 100 MG in DEXTROSE 5%-WATER 100 ML IV SCH ×2 (00:13→13:47)
[2016-11-03] MEDS: BENZONATATE 100 MG CAPSULE PO SCH ×4 (00:23→23:59)
[2016-11-03] MEDS: HEPARIN SODIUM,PORCINE 5,000 UNITS/ML VIAL SQ SCH ×4 (00:24→23:59)
[2016-11-03] MEDS: NAFCILLIN SODIUM 2 GM in DEXTROSE 5%-WATER 100 ML IV SCH ×7 (01:57→23:59)
[2016-11-03 03:44] VITALS: BP 123/72
[2016-11-03] MEDS: ACETAMINOPHEN 325 MG TABLET PO PRN (03:47)
[2016-11-03] MEDS: GuaiFENesin/D-METHORPHAN [SUGAR-FREE] 200-20MG/10 ML SYRUP UDCUP PO PRN ×2 (03:49→14:23)
[2016-11-03 04:52] VITALS: BP 125/73
[2016-11-03 05:47] LABS: GLUCOSE,POINT OF CARE 112 MG/DL (70-110)
[2016-11-03 05:48] LABS: GLUCOSE COMMENT 1 Received Meds; GLUCOSE,POINT OF CARE 271 MG/DL (70-110)
[2016-11-03] MEDS: INSULIN ASPART 100 UNITS/ML SQ PRN ×3 (06:16→18:51)
[2016-11-03 06:41] LABS: BASOPHILS % (AUTO) 0.5 % (0.0-2.0); EOSINOPHILS % (AUTO) 0.2 % (1.0-6.0); HEMOGLOBIN 13.8 g/dL (12.0-16.0); LYMPHOCYTES # (AUTO) 2.3 K/uL (1.0-4.8); LYMPHOCYTES % (AUTO) 27.6 % (22.0-44.0); MEAN CORPUSCULAR HEMOGLOBIN 27.6 pg (26.0-34.0); MEAN CORPUSCULAR HGB CONC 32.1 G/dL (31.0-37.0); MEAN CORPUSCULAR VOLUME 86 fL (80-100); MONOCYTES % (AUTO) 12.4 % (2.0-9.0); NEUTROPHILS % (AUTO) 59.3 % (40.0-70.0); PLATELET COUNT (AUTO) 248 K/uL (150-450); RED CELL DISTRIBUTION WIDTH 15.1 % (11.5-14.5); WHITE BLOOD COUNT (AUTO) 8.4 K/uL (4.5-11.0)
[2016-11-03 07:04] LABS: ALBUMIN 2.3 g/dL (3.4-5.0); BILIRUBIN,TOTAL 1.1 mg/dL (0.1-1.0); CALCIUM, TOTAL 8.3 mg/dL (8.8-10.5); CREATININE 1.39 mg/dL (0.60-1.30); MAGNESIUM 2.3 mg/dL (1.80-2.40); POTASSIUM 3.2 mmol/L (3.5-5.1)
[2016-11-03 07:26] VITALS: BP 106/57
[2016-11-03] MEDS: CARVEDILOL 6.25 MG TABLET PO SCH ×3 (08:00→17:18)
[2016-11-03] MEDS: LISINOPRIL 10 MG TABLET PO SCH (09:00)
[2016-11-03] MEDS: SODIUM CHLORIDE 1 GM TABLET PO SCH ×2 (09:05→21:20)
[2016-11-03] MEDS: DOCUSATE SODIUM 100 MG CAPSULE PO SCH ×2 (09:05→21:00)
[2016-11-03] MEDS: PANTOPRAZOLE SODIUM 40 MG DR TABLET PO SCH (09:06)
[2016-11-03] MEDS: POTASSIUM CHLORIDE 20 MEQ ER TABLET PO PRN (09:06)
[2016-11-03] MEDS: INSULIN DETEMIR 100 UNITS/ML SQ SCH ×2 (09:11→21:24)
[2016-11-03] MEDS: BUDESONIDE 0.5 MG/2 ML NEB SOLUTION NEB SCH ×2 (09:58→20:26)
[2016-11-03] MEDS: AMIODARONE HCL 200 MG TABLET PO SCH ×3 (10:11→21:14)
[2016-11-03 15:28] VITALS: BP 147/92
[2016-11-03 15:36] LABS: GLUCOSE,POINT OF CARE 182 MG/DL (70-110)
[2016-11-03 20:12] VITALS: BP 131/71
[2016-11-03 20:14] LABS: HEMOGLOBIN A1C 12.6 % (4.5-6.2)
[2016-11-03] MEDS ORDERED: 0.9% SODIUM CHLORIDE 5 ML NEB SOLUTION NEB ONE (20:18)
[2016-11-03 20:36] LABS: CHOL/HDL RATIO 4.8 (3.9-5.7); THYROID STIMULATING HORMONE 0.73 uIU/mL (0.36-3.74)
[2016-11-03] MEDS: SIMVASTATIN 5 MG TABLET PO SCH (21:15)
[2016-11-04] VITALS (7 sets, daily range): BP systolic 90–132; BP diastolic 53–94
[2016-11-04] MEDS: CARVEDILOL 6.25 MG TABLET PO SCH ×3 (00:41→15:39)
[2016-11-04] MEDS: DOXYCYCLINE 100 MG in DEXTROSE 5%-WATER 100 ML IV SCH ×2 (00:41→12:57)
[2016-11-04 02:42] LABS: GLUCOSE,POINT OF CARE 139 MG/DL (70-110)
[2016-11-04] MEDS: NAFCILLIN SODIUM 2 GM in DEXTROSE 5%-WATER 100 ML IV SCH ×5 (04:05→19:27)
[2016-11-04 05:42] LABS: GLUCOSE COMMENT 1 Juice/Food/D50 Given; GLUCOSE,POINT OF CARE 77 MG/DL (70-110)
[2016-11-04] MEDS: BUDESONIDE 0.5 MG/2 ML NEB SOLUTION NEB SCH ×2 (07:36→22:03)
[2016-11-04] MEDS: INSULIN DETEMIR 100 UNITS/ML SQ SCH ×2 (09:00→20:47)
[2016-11-04] MEDS: DOCUSATE SODIUM 100 MG CAPSULE PO SCH ×2 (09:00→20:52)
[2016-11-04] MEDS: LISINOPRIL 10 MG TABLET PO SCH (09:09)
[2016-11-04] MEDS: AMIODARONE HCL 200 MG TABLET PO SCH ×2 (09:09→20:45)
[2016-11-04] MEDS: PANTOPRAZOLE SODIUM 40 MG DR TABLET PO SCH (09:09)
[2016-11-04] MEDS: ASPIRIN 81 MG EC TABLET PO SCH (09:09)
[2016-11-04] MEDS: SODIUM CHLORIDE 1 GM TABLET PO SCH ×2 (09:09→20:45)
[2016-11-04] MEDS: HEPARIN SODIUM,PORCINE 5,000 UNITS/ML VIAL SQ SCH ×2 (09:09→15:38)
[2016-11-04] MEDS: BENZONATATE 100 MG CAPSULE PO SCH ×2 (09:09→15:38)
[2016-11-04] MEDS ORDERED: SODIUM CHLORIDE 0.9% 250 ML IV ONE (09:13)
[2016-11-04 10:00] LABS: BASOPHILS % (AUTO) 0.4 % (0.0-2.0); EOSINOPHILS % (AUTO) 0.3 % (1.0-6.0); HEMOGLOBIN 13.4 g/dL (12.0-16.0); LYMPHOCYTES % (AUTO) 23.1 % (22.0-44.0); MEAN CORPUSCULAR HEMOGLOBIN 27.5 pg (26.0-34.0); MEAN CORPUSCULAR HGB CONC 31.9 G/dL (31.0-37.0); MEAN CORPUSCULAR VOLUME 86 fL (80-100); MONOCYTES # (AUTO) 0.9 K/uL (0.1-1.0); MONOCYTES % (AUTO) 9.7 % (2.0-9.0); NEUTROPHILS # (AUTO) 5.8 K/uL (1.8-7.7); NEUTROPHILS % (AUTO) 66.5 % (40.0-70.0); PLATELET COUNT (AUTO) 280 K/uL (150-450); RED BLOOD CELL COUNT(AUTO) 4.88 MIL/uL (4.00-5.20); RED CELL DISTRIBUTION WIDTH 15.2 % (11.5-14.5); WHITE BLOOD COUNT (AUTO) 8.8 K/uL (4.5-11.0)
[2016-11-04 10:08] LABS: ALBUMIN 2.1 g/dL (3.4-5.0); BILIRUBIN,TOTAL 0.8 mg/dL (0.1-1.0); CALCIUM, TOTAL 8.2 mg/dL (8.8-10.5); CREATININE 1.34 mg/dL (0.60-1.30); MAGNESIUM 2.4 mg/dL (1.80-2.40); POTASSIUM 3.4 mmol/L (3.5-5.1); TOTAL PROTEIN, SERUM 6.7 g/dL (6.4-8.2)
[2016-11-04] MEDS ORDERED: POTASSIUM CHL 10 MEQ/WATER 50 ML IV PRN (11:00)
[2016-11-04] MEDS ORDERED: POTASSIUM CHLORIDE 20 MEQ ER TABLET PO PRN (11:00)
[2016-11-04] MEDS: POTASSIUM CHLORIDE 20 MEQ ER TABLET PO PRN (12:19)
[2016-11-04] MEDS: INSULIN ASPART 100 UNITS/ML SQ PRN ×3 (12:21→20:47)
[2016-11-04] MEDS: SIMVASTATIN 5 MG TABLET PO SCH (20:45)
[2016-11-05] MEDS: CARVEDILOL 6.25 MG TABLET PO SCH ×4 (00:13→23:25)
[2016-11-05] MEDS: BENZONATATE 100 MG CAPSULE PO SCH ×4 (00:13→23:25)
[2016-11-05] MEDS: HEPARIN SODIUM,PORCINE 5,000 UNITS/ML VIAL SQ SCH ×4 (00:13→23:25)
[2016-11-05] MEDS: NAFCILLIN SODIUM 2 GM in DEXTROSE 5%-WATER 100 ML IV SCH ×6 (00:15→20:22)
[2016-11-05] MEDS: DOXYCYCLINE 100 MG in DEXTROSE 5%-WATER 100 ML IV SCH ×3 (00:55→23:26)
[2016-11-05 04:41] VITALS: BP 101/73
[2016-11-05] MEDS: INSULIN ASPART 100 UNITS/ML SQ PRN ×3 (06:07→17:57)
[2016-11-05 07:27] LABS: GLUCOSE COMMENT 1 Received Meds; GLUCOSE,POINT OF CARE 276 MG/DL (70-110)
[2016-11-05] MEDS: DOCUSATE SODIUM 100 MG CAPSULE PO SCH ×3 (07:33→21:00)
[2016-11-05 07:49] LABS: BASOPHILS % (AUTO) 0.4 % (0.0-2.0); EOSINOPHILS % (AUTO) 0.3 % (1.0-6.0); HEMATOCRIT 42.5 % (36-46); HEMOGLOBIN 13.5 g/dL (12.0-16.0); LYMPHOCYTES # (AUTO) 2.3 K/uL (1.0-4.8); LYMPHOCYTES % (AUTO) 24.8 % (22.0-44.0); MEAN CORPUSCULAR HEMOGLOBIN 27.4 pg (26.0-34.0); MEAN CORPUSCULAR HGB CONC 31.9 G/dL (31.0-37.0); MEAN CORPUSCULAR VOLUME 86 fL (80-100); MONOCYTES # (AUTO) 0.7 K/uL (0.1-1.0); MONOCYTES % (AUTO) 7.8 % (2.0-9.0); NEUTROPHILS # (AUTO) 6.3 K/uL (1.8-7.7); NEUTROPHILS % (AUTO) 66.7 % (40.0-70.0); PLATELET COUNT (AUTO) 292 K/uL (150-450); RED BLOOD CELL COUNT(AUTO) 4.94 MIL/uL (4.00-5.20); RED CELL DISTRIBUTION WIDTH 15.4 % (11.5-14.5); WHITE BLOOD COUNT (AUTO) 9.4 K/uL (4.5-11.0)
[2016-11-05] MEDS: AMIODARONE HCL 200 MG TABLET PO SCH ×2 (07:58→20:22)
[2016-11-05] MEDS: LISINOPRIL 10 MG TABLET PO SCH (07:58)
[2016-11-05] MEDS: SODIUM CHLORIDE 1 GM TABLET PO SCH ×2 (07:59→20:22)
[2016-11-05] MEDS: PANTOPRAZOLE SODIUM 40 MG DR TABLET PO SCH (07:59)
[2016-11-05] MEDS: ASPIRIN 81 MG EC TABLET PO SCH (07:59)
[2016-11-05 08:00] LABS: ALBUMIN 2.1 g/dL (3.4-5.0); BILIRUBIN,TOTAL 0.8 mg/dL (0.1-1.0); CALCIUM, TOTAL 8.5 mg/dL (8.8-10.5); CREATININE 1.46 mg/dL (0.60-1.30); MAGNESIUM 2.6 mg/dL (1.80-2.40); POTASSIUM 4.3 mmol/L (3.5-5.1); TOTAL PROTEIN, SERUM 6.9 g/dL (6.4-8.2)
[2016-11-05 08:03] VITALS: BP 109/75
[2016-11-05] MEDS: INSULIN DETEMIR 100 UNITS/ML SQ SCH ×2 (08:04→20:39)
[2016-11-05] MEDS: BUDESONIDE 0.5 MG/2 ML NEB SOLUTION NEB SCH ×2 (09:27→20:52)
[2016-11-05] MEDS ORDERED: NAFC2FRO2 IV (11:25)
[2016-11-05] MEDS ORDERED: LISI10TA7 PO (11:25)
[2016-11-05] MEDS ORDERED: AMIO200T2 PO (11:25)
[2016-11-05] MEDS ORDERED: CARV6 PO (11:25)
[2016-11-05] MEDS ORDERED: ASPI-1093 PO (11:25)
[2016-11-05] MEDS ORDERED: INSU100V12 SQ (11:25)
[2016-11-05 11:33] VITALS: BP 118/60
[2016-11-05 11:49] LABS: GLUCOSE COMMENT 1 Received Meds; GLUCOSE,POINT OF CARE 304 MG/DL (70-110)
[2016-11-05 11:52] LABS: GLUCOSE,POINT OF CARE 100 MG/DL (70-110)
[2016-11-05 11:53] LABS: GLUCOSE,POINT OF CARE 96 MG/DL (70-110)
[2016-11-05 16:12] VITALS: BP 123/71
[2016-11-05 20:17] VITALS: BP 115/74
[2016-11-05] MEDS: SIMVASTATIN 5 MG TABLET PO SCH (20:22)
[2016-11-05 23:02] VITALS: BP 128/80
[2016-11-06] VITALS (9 sets, daily range): BP systolic 105–126; BP diastolic 60–93
[2016-11-06] MEDS: NAFCILLIN SODIUM 2 GM in DEXTROSE 5%-WATER 100 ML IV SCH ×6 (00:40→20:52)
[2016-11-06 07:32] LABS: GLUCOSE COMMENT 1 Received Meds; GLUCOSE,POINT OF CARE 190 MG/DL (70-110)
[2016-11-06] MEDS: BENZONATATE 100 MG CAPSULE PO SCH ×2 (08:00→15:18)
[2016-11-06] MEDS: CARVEDILOL 6.25 MG TABLET PO SCH ×2 (08:00→15:18)
[2016-11-06] MEDS: HEPARIN SODIUM,PORCINE 5,000 UNITS/ML VIAL SQ SCH ×2 (08:00→16:05)
[2016-11-06] MEDS: DOCUSATE SODIUM 100 MG CAPSULE PO SCH ×2 (09:00→20:59)
[2016-11-06] MEDS: INSULIN DETEMIR 100 UNITS/ML SQ SCH ×2 (09:00→20:57)
[2016-11-06] MEDS: BUDESONIDE 0.5 MG/2 ML NEB SOLUTION NEB SCH ×2 (09:10→20:35)
[2016-11-06 10:52] LABS: PROTHROMBIN TIME 10.6 SEC (9.4-11.6)
[2016-11-06] MEDS ORDERED: MIDAZOLAM HCL 2 MG/2 ML VIAL ONE (11:01)
[2016-11-06] MEDS ORDERED: FentaNYL CITRATE-PF 100 MCG/2 ML VIAL ONE (11:01)
[2016-11-06] MEDS ORDERED: BENZOCAINE 20% 50 MCG/SPRAY 57 GM TP ONE (11:30)
[2016-11-06] MEDS ORDERED: MIDAZOLAM HCL 2 MG/2 ML VIAL IVP ONE (11:30)
[2016-11-06] MEDS ORDERED: FentaNYL CITRATE-PF 100 MCG/2 ML VIAL IVP ONE (11:30)
[2016-11-06] MEDS: SODIUM CHLORIDE 1 GM TABLET PO SCH ×2 (11:55→20:52)
[2016-11-06] MEDS: ASPIRIN 81 MG EC TABLET PO SCH (11:55)
[2016-11-06] MEDS: LOPERAMIDE HCL 2 MG CAPSULE PO PRN (11:56)
[2016-11-06] MEDS: LISINOPRIL 10 MG TABLET PO SCH (11:56)
[2016-11-06] MEDS: AMIODARONE HCL 200 MG TABLET PO SCH ×2 (11:56→20:52)
[2016-11-06] MEDS: PANTOPRAZOLE SODIUM 40 MG DR TABLET PO SCH (11:56)
[2016-11-06] MEDS: INSULIN ASPART 100 UNITS/ML SQ PRN ×3 (12:00→20:58)
[2016-11-06] MEDS: DOXYCYCLINE 100 MG in DEXTROSE 5%-WATER 100 ML IV SCH (12:33)
[2016-11-06 19:37] LABS: GLUCOSE COMMENT 1 Received Meds; GLUCOSE,POINT OF CARE 172 MG/DL (70-110)
[2016-11-06 19:37] LABS: GLUCOSE COMMENT 1 Received Meds; GLUCOSE,POINT OF CARE 195 MG/DL (70-110)
[2016-11-06 19:46] LABS: GLUCOSE,POINT OF CARE 326 MG/DL (70-110)
[2016-11-06 19:47] LABS: GLUCOSE,POINT OF CARE 276 MG/DL (70-110)
[2016-11-06 19:47] LABS: GLUCOSE,POINT OF CARE 230 MG/DL (70-110)
[2016-11-06 19:51] LABS: GLUCOSE COMMENT 1 Received Meds; GLUCOSE,POINT OF CARE 246 MG/DL (70-110)
[2016-11-06 19:51] LABS: GLUCOSE COMMENT 1 Received Meds; GLUCOSE,POINT OF CARE 313 MG/DL (70-110)
[2016-11-06] MEDS: SIMVASTATIN 5 MG TABLET PO SCH (20:52)
[2016-11-07] MEDS: HEPARIN SODIUM,PORCINE 5,000 UNITS/ML VIAL SQ SCH ×4 (00:23→23:23)
[2016-11-07] MEDS: BENZONATATE 100 MG CAPSULE PO SCH ×4 (00:23→23:22)
[2016-11-07] MEDS: CARVEDILOL 6.25 MG TABLET PO SCH ×4 (00:23→23:23)
[2016-11-07] MEDS: NAFCILLIN SODIUM 2 GM in DEXTROSE 5%-WATER 100 ML IV SCH ×7 (00:23→23:22)
[2016-11-07 04:24] VITALS: BP 108/76
[2016-11-07] MEDS: INSULIN ASPART 100 UNITS/ML SQ PRN ×4 (06:09→21:02)
[2016-11-07] MEDS: ASPIRIN 81 MG EC TABLET PO SCH (08:20)
[2016-11-07] MEDS: LISINOPRIL 10 MG TABLET PO SCH (08:21)
[2016-11-07] MEDS: PANTOPRAZOLE SODIUM 40 MG DR TABLET PO SCH (08:21)
[2016-11-07] MEDS: AMIODARONE HCL 200 MG TABLET PO SCH ×2 (08:21→20:52)
[2016-11-07] MEDS: DOCUSATE SODIUM 100 MG CAPSULE PO SCH ×3 (08:21→21:00)
[2016-11-07] MEDS: SODIUM CHLORIDE 1 GM TABLET PO SCH ×2 (08:22→20:51)
[2016-11-07 09:26] VITALS: BP 115/70
[2016-11-07] MEDS: BUDESONIDE 0.5 MG/2 ML NEB SOLUTION NEB SCH ×2 (09:27→20:10)
[2016-11-07] MEDS: INSULIN DETEMIR 100 UNITS/ML SQ SCH ×2 (09:29→21:02)
[2016-11-07 11:05] LABS: CALCIUM, TOTAL 8.5 mg/dL (8.8-10.5); CREATININE 1.3 mg/dL (0.60-1.30); POTASSIUM 3.9 mmol/L (3.5-5.1)
[2016-11-07 11:20] VITALS: BP 123/78
[2016-11-07 16:11] VITALS: BP 144/79
[2016-11-07] MEDS: ACETAMINOPHEN 325 MG TABLET PO PRN ×2 (16:16→23:23)
[2016-11-07] MEDS ORDERED: 0.9% SODIUM CHLORIDE 5 ML NEB SOLUTION NEB ONE (19:55)
[2016-11-07 20:05] VITALS: BP 136/76
[2016-11-07] MEDS: SIMVASTATIN 5 MG TABLET PO SCH (20:51)
[2016-11-07 23:39] VITALS: BP 109/66
[2016-11-08] MEDS: NAFCILLIN SODIUM 2 GM in DEXTROSE 5%-WATER 100 ML IV SCH ×6 (04:11→23:39)
[2016-11-08] MEDS: INSULIN ASPART 100 UNITS/ML SQ PRN ×4 (06:29→21:51)
[2016-11-08 07:37] VITALS: BP 118/72
[2016-11-08] MEDS: ASPIRIN 81 MG EC TABLET PO SCH (08:02)
[2016-11-08] MEDS: BENZONATATE 100 MG CAPSULE PO SCH ×3 (08:02→23:39)
[2016-11-08] MEDS: AMIODARONE HCL 200 MG TABLET PO SCH ×2 (08:02→20:49)
[2016-11-08] MEDS: CARVEDILOL 6.25 MG TABLET PO SCH ×3 (08:02→23:39)
[2016-11-08] MEDS: HEPARIN SODIUM,PORCINE 5,000 UNITS/ML VIAL SQ SCH ×3 (08:02→23:39)
[2016-11-08] MEDS: LISINOPRIL 10 MG TABLET PO SCH (08:02)
[2016-11-08] MEDS: SODIUM CHLORIDE 1 GM TABLET PO SCH ×2 (08:02→20:49)
[2016-11-08] MEDS: PANTOPRAZOLE SODIUM 40 MG DR TABLET PO SCH (08:02)
[2016-11-08] MEDS: DOCUSATE SODIUM 100 MG CAPSULE PO SCH ×2 (08:03→20:48)
[2016-11-08] MEDS: BUDESONIDE 0.5 MG/2 ML NEB SOLUTION NEB SCH ×2 (09:04→20:08)
[2016-11-08 09:09] LABS: CALCIUM, TOTAL 8.1 mg/dL (8.8-10.5); CREATININE 1.33 mg/dL (0.60-1.30)
[2016-11-08] MEDS: GuaiFENesin/D-METHORPHAN [SUGAR-FREE] 200-20MG/10 ML SYRUP UDCUP PO PRN ×2 (09:24→15:27)
[2016-11-08] MEDS: INSULIN DETEMIR 100 UNITS/ML SQ SCH ×2 (09:30→21:50)
[2016-11-08 12:10] VITALS: BP 123/76
[2016-11-08] MEDS: ACETAMINOPHEN 325 MG TABLET PO PRN (15:27)
[2016-11-08 15:34] VITALS: BP 127/75
[2016-11-08 19:37] VITALS: BP 118/75
[2016-11-08] MEDS ORDERED: 0.9% SODIUM CHLORIDE 5 ML NEB SOLUTION NEB ONE (20:08)
[2016-11-08] MEDS: SIMVASTATIN 5 MG TABLET PO SCH (20:49)
[2016-11-08 23:13] VITALS: BP 122/74
[2016-11-09] MEDS: GuaiFENesin/D-METHORPHAN [SUGAR-FREE] 200-20MG/10 ML SYRUP UDCUP PO PRN ×3 (02:34→20:39)
[2016-11-09] MEDS: NAFCILLIN SODIUM 2 GM in DEXTROSE 5%-WATER 100 ML IV SCH ×5 (03:51→19:23)
[2016-11-09 05:12] VITALS: BP 106/41
[2016-11-09] MEDS: ACETAMINOPHEN 325 MG TABLET PO PRN ×3 (05:18→20:40)
[2016-11-09 06:58] LABS: CALCIUM, TOTAL 8.4 mg/dL (8.8-10.5); CREATININE 1.06 mg/dL (0.60-1.30); POTASSIUM 3.4 mmol/L (3.5-5.1)
[2016-11-09 07:00] VITALS: BP 122/80
[2016-11-09] MEDS: BUDESONIDE 0.5 MG/2 ML NEB SOLUTION NEB SCH ×2 (07:39→19:37)
[2016-11-09] MEDS: PANTOPRAZOLE SODIUM 40 MG DR TABLET PO SCH (08:27)
[2016-11-09] MEDS: CARVEDILOL 6.25 MG TABLET PO SCH ×2 (08:28→16:37)
[2016-11-09] MEDS: HEPARIN SODIUM,PORCINE 5,000 UNITS/ML VIAL SQ SCH ×2 (08:28→16:38)
[2016-11-09] MEDS: ASPIRIN 81 MG EC TABLET PO SCH (08:28)
[2016-11-09] MEDS: AMIODARONE HCL 200 MG TABLET PO SCH ×2 (08:28→20:39)
[2016-11-09] MEDS: SODIUM CHLORIDE 1 GM TABLET PO SCH ×2 (08:28→20:39)
[2016-11-09] MEDS: BENZONATATE 100 MG CAPSULE PO SCH ×2 (08:28→16:37)
[2016-11-09] MEDS: POTASSIUM CHLORIDE 20 MEQ ER TABLET PO PRN (08:28)
[2016-11-09] MEDS: LISINOPRIL 10 MG TABLET PO SCH (08:28)
[2016-11-09] MEDS: DOCUSATE SODIUM 100 MG CAPSULE PO SCH ×2 (08:29→20:48)
[2016-11-09] MEDS: INSULIN ASPART 100 UNITS/ML SQ PRN ×2 (12:46→20:56)
[2016-11-09] MEDS: INSULIN DETEMIR 100 UNITS/ML SQ SCH ×2 (12:47→20:55)
[2016-11-09 15:50] VITALS: BP 130/78
[2016-11-09] MEDS: LOPERAMIDE HCL 2 MG CAPSULE PO PRN ×2 (16:38→20:47)
[2016-11-09 17:37] LABS: GLUCOSE,POINT OF CARE 246 MG/DL (70-110)
[2016-11-09 17:37] LABS: GLUCOSE,POINT OF CARE 131 MG/DL (70-110)
[2016-11-09 17:42] LABS: GLUCOSE COMMENT 1 FASTING; GLUCOSE,POINT OF CARE 271 MG/DL (70-110)
[2016-11-09 19:52] VITALS: BP 105/66
[2016-11-09] MEDS: SIMVASTATIN 5 MG TABLET PO SCH (20:39)
[2016-11-10] MEDS: BENZONATATE 100 MG CAPSULE PO SCH ×3 (00:08→15:49)
[2016-11-10] MEDS: NAFCILLIN SODIUM 2 GM in DEXTROSE 5%-WATER 100 ML IV SCH ×5 (00:08→15:48)
[2016-11-10] MEDS: HEPARIN SODIUM,PORCINE 5,000 UNITS/ML VIAL SQ SCH ×3 (00:09→15:49)
[2016-11-10] MEDS: LOPERAMIDE HCL 2 MG CAPSULE PO PRN (00:09)
[2016-11-10 00:34] VITALS: BP 98/58
[2016-11-10] MEDS ORDERED: SODIUM CHLORIDE 0.9% 250 ML IV ONE (03:27)
[2016-11-10 05:15] VITALS: BP 116/73
[2016-11-10] MEDS: INSULIN ASPART 100 UNITS/ML SQ PRN ×2 (06:31→12:58)
[2016-11-10] MEDS: ACETAMINOPHEN 325 MG TABLET PO PRN (06:31)
[2016-11-10 07:51] LABS: CALCIUM, TOTAL 8.4 mg/dL (8.8-10.5); CREATININE 1.21 mg/dL (0.60-1.30); POTASSIUM 3.9 mmol/L (3.5-5.1)
[2016-11-10 08:03] VITALS: BP 109/69
[2016-11-10] MEDS: DOCUSATE SODIUM 100 MG CAPSULE PO SCH (09:00)
[2016-11-10] MEDS: PANTOPRAZOLE SODIUM 40 MG DR TABLET PO SCH (09:38)
[2016-11-10] MEDS: SODIUM CHLORIDE 1 GM TABLET PO SCH (09:38)
[2016-11-10] MEDS: LISINOPRIL 10 MG TABLET PO SCH (09:38)
[2016-11-10] MEDS: ASPIRIN 81 MG EC TABLET PO SCH (09:38)
[2016-11-10] MEDS: CARVEDILOL 6.25 MG TABLET PO SCH ×3 (09:38→16:00)
[2016-11-10] MEDS: AMIODARONE HCL 200 MG TABLET PO SCH (09:39)
[2016-11-10] MEDS: INSULIN DETEMIR 100 UNITS/ML SQ SCH (09:43)
[2016-11-10] MEDS: BUDESONIDE 0.5 MG/2 ML NEB SOLUTION NEB SCH (10:16)
[2016-11-10 12:01] VITALS: BP 113/63
[2016-11-10 15:02] LABS: GLUCOSE COMMENT 1 Received Meds; GLUCOSE,POINT OF CARE 184 MG/DL (70-110)
[2016-11-10 15:02] LABS: GLUCOSE COMMENT 1 Received Meds; GLUCOSE,POINT OF CARE 257 MG/DL (70-110)
[2016-11-10 15:23] LABS: GLUCOSE COMMENT 1 Received Meds; GLUCOSE,POINT OF CARE 203 MG/DL (70-110)
[2016-11-10 15:23] LABS: GLUCOSE,POINT OF CARE 134 MG/DL (70-110)
[2016-11-10 15:23] LABS: GLUCOSE COMMENT 1 Received Meds; GLUCOSE,POINT OF CARE 303 MG/DL (70-110)
[2016-11-10 15:27] LABS: GLUCOSE COMMENT 1 Received Meds; GLUCOSE,POINT OF CARE 198 MG/DL (70-110)
[2016-11-10 15:32] LABS: GLUCOSE COMMENT 1 Received Meds; GLUCOSE,POINT OF CARE 318 MG/DL (70-110)
[2016-11-10 15:37] LABS: GLUCOSE COMMENT 1 Received Meds; GLUCOSE,POINT OF CARE 265 MG/DL (70-110)
[2016-11-10 16:17] VITALS: BP 135/86
[2016-11-10] MEDS ORDERED: CeFAZolin 2 GM/DEXTROSE 50 ML IV SCH (16:45)
[2016-11-11] MEDS ORDERED: AMIODARONE HCL 200 MG TABLET PO SCH (09:00)
[2016-11-17 14:07] LABS: GLUCOSE COMMENT 1 Received Meds; GLUCOSE,POINT OF CARE 252 MG/DL (70-110)
[2016-11-23 06:53] LABS: GLUCOSE COMMENT 1 Received Meds; GLUCOSE,POINT OF CARE 322 MG/DL (70-110)
[2016-11-23 06:53] LABS: GLUCOSE COMMENT 1 Received Meds; GLUCOSE,POINT OF CARE 146 MG/DL (70-110)
[2016-11-23 06:53] LABS: GLUCOSE COMMENT 1 Received Meds; GLUCOSE,POINT OF CARE 249 MG/DL (70-110)
== END 2016-11-10 16:55 | DRG 871 ==
LOC: EMS 00:36 → 5S 03:39 → ICU 15:46 → 5N 10-30 10:08 → 5S 11-02 05:05
PROVIDERS: ADMIT Internal Medicine; ATTEND Internal Medicine
PROC: 5A09357 Assistance with Respiratory Ventilation, Less than 24 Consecutive Hours, Continuous Positive Airway Pressure (ICD-10-PCS; 2016-10-28)
PROC: 4A023N7 Measurement of Cardiac Sampling and Pressure, Left Heart, Percutaneous Approach (ICD-10-PCS; 2016-10-29)
PROC: B2111ZZ Fluoroscopy of Multiple Coronary Arteries using Low Osmolar Contrast (ICD-10-PCS; 2016-10-29)
PROC: B41F1ZZ Fluoroscopy of Right Lower Extremity Arteries using Low Osmolar Contrast (ICD-10-PCS; 2016-10-29)
PROC: B24BZZ4 Ultrasonography of Heart with Aorta, Transesophageal (ICD-10-PCS; 2016-11-06)
PROC: 02HV33Z Insertion of Infusion Device into Superior Vena Cava, Percutaneous Approach (ICD-10-PCS; principal; 2016-11-10)
PROC: B518ZZA Fluoroscopy of Superior Vena Cava, Guidance (ICD-10-PCS; 2016-11-10)
DX: A41.01 Sepsis due to Methicillin susceptible Staphylococcus aureus (principal); I50.23 Acute on chronic systolic (congestive) heart failure; I21.4 Non-ST elevation (NSTEMI) myocardial infarction; E43 Unspecified severe protein-calorie malnutrition; I63.9 Cerebral infarction, unspecified; J18.9 Pneumonia, unspecified organism; I47.2 Ventricular tachycardia; N39.0 Urinary tract infection, site not specified; N17.9 Acute kidney failure, unspecified; E87.1 Hypo-osmolality and hyponatremia; G81.94 Hemiplegia, unspecified affecting left nondominant side; J44.1 Chronic obstructive pulmonary disease with (acute) exacerbation; J44.0 Chronic obstructive pulmonary disease with (acute) lower respiratory infection; J45.901 Unspecified asthma with (acute) exacerbation; F31.9 Bipolar disorder, unspecified; E78.5 Hyperlipidemia, unspecified; E78.00 Pure hypercholesterolemia, unspecified; I11.0 Hypertensive heart disease with heart failure; I25.10 Atherosclerotic heart disease of native coronary artery without angina pectoris; I25.5 Ischemic cardiomyopathy; R19.7 Diarrhea, unspecified; E11.42 Type 2 diabetes mellitus with diabetic polyneuropathy; E87.6 Hypokalemia; Z88.8 Allergy status to other drugs, medicaments and biological substances; Z79.899 Other long term (current) drug therapy; Z79.51 Long term (current) use of inhaled steroids; Z79.4 Long term (current) use of insulin; Z79.84 Long term (current) use of oral hypoglycemic drugs; Z95.810 Presence of automatic (implantable) cardiac defibrillator; Z68.28 Body mass index [BMI] 28.0-28.9, adult
CPT/HCPCS: 36245; 36569; 70450; 71250; 78806; 82607; 82746; 82805; 82962; 83036; 83735; 84132; 84295; 84443; 85379; 87040; 87045; 87081; 87086; 87324; 87449; 92610; 93005; 93306; 93312; 93880; 94640; 94660; 96361; 96365; 96366; 96368; 96375; 96376; 97110; 97112; 97162; 97166; 97530; 97535; 99291; A9547; J0282; J0690; J0696; J1644; J1815; J1940; J2060; J2250; J2270; J2370; J3010; J3480; J3490; J3535; J7050; J7060; Q9967

== ENCOUNTER 2019-06-07 15:50 | Inpatient (IN) | payer MEDICAID, MEDICARE ==
[~2019-06-07] VITALS: Ht 160 cm; Wt 52.9 kg
[~2019-06-07 15:50] MED LIST changes: -ADV100 IH; +AMIO200T5 PO; +ASPI-1182 PO; -CARV25 PO; +CARV6 PO; -LISI-662 PO; +LISI10TA7 PO; +METF-960 PO; -METF500T4 PO; +NAFC2FRO2 IV; +SIMV5TAB59 PO; -SIMV5TAB6 PO
[2019-06-07] MEDS ORDERED: ONDANSETRON HCL 4 MG/2 ML VIAL IVP ONE (16:45)
[2019-06-07] MEDS ORDERED: CARV3 PO (16:46)
[2019-06-07] MEDS ORDERED: ASPI81 PO (16:46)
[2019-06-07] MEDS ORDERED: INSU100V SQ (16:46)
[2019-06-07] MEDS ORDERED: SIMV-261 PO (16:46)
[2019-06-07] MEDS ORDERED: LUBI8CAP PO (16:46)
[2019-06-07] MEDS ORDERED: DULA1.5P SQ (16:46)
[2019-06-07 17:20] LABS: BASOPHILS % (AUTO) 1.2 % (0.0-2.0); EOSINOPHILS % (AUTO) 1.6 % (1.0-6.0); HEMATOCRIT 42.8 % (36-46); HEMOGLOBIN 14.5 g/dL (12.0-16.0); LYMPHOCYTES # (AUTO) 3.5 K/uL (1.0-4.8); LYMPHOCYTES % (AUTO) 45.6 % (22.0-44.0); MEAN CORPUSCULAR HEMOGLOBIN 28.8 pg (26.0-34.0); MEAN CORPUSCULAR HGB CONC 33.8 G/dL (31.0-37.0); MEAN CORPUSCULAR VOLUME 85 fL (80-100); MONOCYTES # (AUTO) 0.8 K/uL (0.1-1.0); NEUTROPHILS # (AUTO) 3.1 K/uL (1.8-7.7); NEUTROPHILS % (AUTO) 40.6 % (40.0-70.0); PLATELET COUNT (AUTO) 219 K/uL (150-450); RED BLOOD CELL COUNT(AUTO) 5.02 MIL/uL (4.00-5.20); RED CELL DISTRIBUTION WIDTH 14.3 % (11.5-14.5)
[2019-06-07 17:21] LABS: GLUCOSE,POINT OF CARE 203 MG/DL (70-110)
[2019-06-07 17:38] LABS: CALCIUM, TOTAL 9.1 mg/dL (8.8-10.5); CREATININE 1.04 mg/dL (0.60-1.30); POTASSIUM 3.8 mmol/L (3.5-5.1)
[2019-06-07 17:44] LABS: ALBUMIN 3.3 g/dL (3.4-5.0); BILIRUBIN,TOTAL 0.5 mg/dL (0.1-1.0); TOTAL PROTEIN, SERUM 8.2 g/dL (6.4-8.2)
[2019-06-07] MEDS ORDERED: MAGNESIUM HYDROXIDE SUSPENSION 30 ML UDCUP PO PRN (18:45)
[2019-06-07] MEDS ORDERED: ACETAMINOPHEN 325 MG TABLET PO PRN (18:45)
[2019-06-07] MEDS ORDERED: MORPHINE SULFATE 2 MG/ML SYRINGE IVP PRN (18:45)
[2019-06-07] MEDS ORDERED: ONDANSETRON HCL 4 MG/2 ML VIAL IVP PRN (18:45)
[2019-06-07] MEDS ORDERED: DEXTROSE 50%-WATER 25 GM/50 ML SYRINGE IVP PRN (18:45)
[2019-06-07] MEDS: MORPHINE SULFATE 2 MG/ML SYRINGE IVP ONE ×2 (18:53→18:56)
[2019-06-07 21:30] VITALS: BP 123/88
[2019-06-07] MEDS: DOCUSATE SODIUM 100 MG CAPSULE PO SCH (21:55)
[2019-06-07] MEDS: INSULIN LISPRO 100 UNITS/ML SQ PRN (21:58)
[2019-06-07] MEDS: HEPARIN SODIUM,PORCINE 5,000 UNITS/ML VIAL SQ SCH (23:26)
[2019-06-08] VITALS (7 sets, daily range): BP systolic 94–121; BP diastolic 58–73
[2019-06-08 02:06] LABS: GLUCOMETER DEV NAME(LOC) 5N.1; GLUCOSE,POINT OF CARE 233 MG/DL (70-110)
[2019-06-08 02:52] LABS: APPEARANCE,URINE TURBID (CLEAR); BILIRUBIN,URINE NEGATIVE (NEGATIVE); GLUCOSE, URINE (UA) 500 mg/dL (NEGATIVE); KETONES,URINE NEGATIVE (NEGATIVE); LEUKOCYTE ESTERASE ,URINE LARGE (NEGATIVE); NITRATE,URINE NEGATIVE (NEGATIVE); OCCULT BLOOD,URINE LARGE (NEGATIVE); PROTEIN,URINE TRACE (NEGATIVE); UROBILINOGEN,URINE 0.2 mg/dL (<=1.0)
[2019-06-08 02:58] LABS: AMPHET/METH SCREEN,URINE NEGATIVE (NEGATIVE); BARBITURATE SCREEN, URINE NEGATIVE (NEGATIVE); BENZODIAZEPINES SCREEN,URINE NEGATIVE (NEGATIVE); CANNABINOID SCREEN,URINE NEGATIVE (NEGATIVE); COCAINE SCREEN,URINE NEGATIVE (NEGATIVE); METHADONE SCREEN, URINE NEGATIVE (NEGATIVE); OPIATE SCREEN,URINE NEGATIVE (NEGATIVE)
[2019-06-08 02:59] LABS: PHENCYCLIDINE SCREEN,URINE NEGATIVE (NEGATIVE)
[2019-06-08 03:01] LABS: BACTERIA,URINE Many /HPF (None Seen); WBC,URINE >100 /HPF (0-5)
[2019-06-08 03:02] LABS: SQUAMOUS EPITHELIAL CELL,UR Rare /LPF (None Seen)
[2019-06-08] MEDS: INSULIN LISPRO 100 UNITS/ML SQ PRN ×4 (06:14→20:48)
[2019-06-08] MEDS: HEPARIN SODIUM,PORCINE 5,000 UNITS/ML VIAL SQ SCH ×3 (08:00→16:00)
[2019-06-08] MEDS: FAMOTIDINE 20 MG TABLET PO SCH ×2 (09:00→09:58)
[2019-06-08] MEDS: DOCUSATE SODIUM 100 MG CAPSULE PO SCH ×3 (09:00→20:46)
[2019-06-08] MEDS: LUBIPROSTONE 8 MCG CAPSULE PO SCH ×2 (09:45→20:46)
[2019-06-08] MEDS: ASPIRIN 81 MG CHEWABLE TABLET PO SCH ×2 (09:45→09:58)
[2019-06-08] MEDS: PANTOPRAZOLE SODIUM 40 MG DR TABLET PO SCH ×2 (09:45→09:58)
[2019-06-08] MEDS: CARVEDILOL 3.125 MG TABLET PO SCH ×3 (09:45→20:49)
[2019-06-08] MEDS: CefTRIAXone 1 GM/DEXTROSE 50 ML IV SCH (09:59)
[2019-06-08 12:05] LABS: CALCIUM, TOTAL 8.5 mg/dL (8.8-10.5); CREATININE 0.97 mg/dL (0.60-1.30); POTASSIUM 3.9 mmol/L (3.5-5.1)
[2019-06-08 13:55] LABS: GLUCOMETER DEV NAME(LOC) 5S.1; GLUCOSE,POINT OF CARE 232 MG/DL (70-110)
[2019-06-08] MEDS: NITROGLYCERIN 2% (1 GM=INCH) PACKET TP SCH (18:56)
[2019-06-08] MEDS: SIMVASTATIN 40 MG TABLET PO SCH (20:46)
[2019-06-09 05:42] VITALS: BP 97/71
[2019-06-09] MEDS: INSULIN LISPRO 100 UNITS/ML SQ PRN ×4 (05:46→20:56)
[2019-06-09 07:30] VITALS: BP 97/57
[2019-06-09] MEDS: NITROGLYCERIN 2% (1 GM=INCH) PACKET TP SCH ×3 (08:00→16:28)
[2019-06-09] MEDS: HEPARIN SODIUM,PORCINE 5,000 UNITS/ML VIAL SQ SCH ×3 (08:58→16:28)
[2019-06-09] MEDS: DOCUSATE SODIUM 100 MG CAPSULE PO SCH ×2 (08:59→20:56)
[2019-06-09] MEDS: ASPIRIN 81 MG CHEWABLE TABLET PO SCH (08:59)
[2019-06-09] MEDS: CefTRIAXone 1 GM/DEXTROSE 50 ML IV SCH (08:59)
[2019-06-09] MEDS: FAMOTIDINE 20 MG TABLET PO SCH (09:00)
[2019-06-09] MEDS: PANTOPRAZOLE SODIUM 40 MG DR TABLET PO SCH (09:00)
[2019-06-09] MEDS: LUBIPROSTONE 8 MCG CAPSULE PO SCH ×2 (09:01→18:11)
[2019-06-09 10:59] LABS: BASOPHILS % (AUTO) 1.5 % (0.0-2.0); EOSINOPHILS % (AUTO) 1.8 % (1.0-6.0); HEMATOCRIT 44.8 % (36-46); HEMOGLOBIN 14.6 g/dL (12.0-16.0); MEAN CORPUSCULAR HEMOGLOBIN 28.2 pg (26.0-34.0); MEAN CORPUSCULAR HGB CONC 32.6 G/dL (31.0-37.0); MEAN CORPUSCULAR VOLUME 86 fL (80-100); MONOCYTES # (AUTO) 0.6 K/uL (0.1-1.0); NEUTROPHILS # (AUTO) 2.1 K/uL (1.8-7.7); NEUTROPHILS % (AUTO) 35.7 % (40.0-70.0); PLATELET COUNT (AUTO) 202 K/uL (150-450); RED BLOOD CELL COUNT(AUTO) 5.19 MIL/uL (4.00-5.20); RED CELL DISTRIBUTION WIDTH 14.9 % (11.5-14.5)
[2019-06-09 11:01] VITALS: BP 109/72
[2019-06-09 11:23] LABS: BILIRUBIN,TOTAL 0.4 mg/dL (0.1-1.0); CALCIUM, TOTAL 9.6 mg/dL (8.8-10.5); CREATININE 1.02 mg/dL (0.60-1.30); FREE T4 (FREE THYROXINE) 1.14 ng/dL (0.76-1.46); MAGNESIUM 2.1 mg/dL (1.80-2.40); POTASSIUM 4.1 mmol/L (3.5-5.1); THYROID STIMULATING HORMONE 0.86 uIU/mL (0.36-3.74)
[2019-06-09] MEDS: CARVEDILOL 3.125 MG TABLET PO SCH ×2 (11:43→20:56)
[2019-06-09 16:07] VITALS: BP 111/69
[2019-06-09 20:19] VITALS: BP 108/74
[2019-06-09 20:41] LABS: GLUCOMETER DEV NAME(LOC) 5S.2A; GLUCOSE,POINT OF CARE 207 MG/DL (70-110)
[2019-06-09] MEDS: SIMVASTATIN 40 MG TABLET PO SCH (20:56)
[2019-06-10] VITALS (7 sets, daily range): BP systolic 94–123; BP diastolic 54–83
[2019-06-10] MEDS: HEPARIN SODIUM,PORCINE 5,000 UNITS/ML VIAL SQ SCH ×4 (00:06→23:19)
[2019-06-10] MEDS: NITROGLYCERIN 2% (1 GM=INCH) PACKET TP SCH ×4 (00:07→23:19)
[2019-06-10 00:11] LABS: GLUCOMETER DEV NAME(LOC) 5N.2; GLUCOSE,POINT OF CARE 240 MG/DL (70-110)
[2019-06-10 00:11] LABS: GLUCOMETER DEV NAME(LOC) 5N.2; GLUCOSE,POINT OF CARE 204 MG/DL (70-110)
[2019-06-10 00:11] LABS: GLUCOMETER DEV NAME(LOC) 5N.2; GLUCOSE,POINT OF CARE 206 MG/DL (70-110)
[2019-06-10 00:11] LABS: GLUCOMETER DEV NAME(LOC) 5N.2; GLUCOSE,POINT OF CARE 207 MG/DL (70-110)
[2019-06-10 00:11] LABS: GLUCOMETER DEV NAME(LOC) 5N.2; GLUCOSE,POINT OF CARE 225 MG/DL (70-110)
[2019-06-10 00:11] LABS: GLUCOMETER DEV NAME(LOC) 5S.1; GLUCOSE,POINT OF CARE 176 MG/DL (70-110)
[2019-06-10] MEDS: INSULIN LISPRO 100 UNITS/ML SQ PRN ×4 (05:54→20:58)
[2019-06-10 07:50] LABS: GLUCOMETER DEV NAME(LOC) 5N.2; GLUCOSE,POINT OF CARE 173 MG/DL (70-110)
[2019-06-10] MEDS: DOCUSATE SODIUM 100 MG CAPSULE PO SCH ×2 (09:00→20:23)
[2019-06-10] MEDS: CARVEDILOL 3.125 MG TABLET PO SCH ×2 (09:30→20:23)
[2019-06-10] MEDS: LUBIPROSTONE 8 MCG CAPSULE PO SCH ×2 (09:30→17:47)
[2019-06-10] MEDS: PANTOPRAZOLE SODIUM 40 MG DR TABLET PO SCH (09:30)
[2019-06-10] MEDS: ASPIRIN 81 MG CHEWABLE TABLET PO SCH (09:31)
[2019-06-10] MEDS: FAMOTIDINE 20 MG TABLET PO SCH (09:34)
[2019-06-10] MEDS: CefTRIAXone 1 GM/DEXTROSE 50 ML IV SCH (09:35)
[2019-06-10 13:54] LABS: BASOPHILS % (AUTO) 1.1 % (0.0-2.0); EOSINOPHILS % (AUTO) 1.9 % (1.0-6.0); HEMATOCRIT 39.4 % (36-46); HEMOGLOBIN 12.9 g/dL (12.0-16.0); LYMPHOCYTES # (AUTO) 2.4 K/uL (1.0-4.8); LYMPHOCYTES % (AUTO) 48.2 % (22.0-44.0); MEAN CORPUSCULAR HEMOGLOBIN 27.9 pg (26.0-34.0); MEAN CORPUSCULAR HGB CONC 32.7 G/dL (31.0-37.0); MEAN CORPUSCULAR VOLUME 85 fL (80-100); MONOCYTES # (AUTO) 0.4 K/uL (0.1-1.0); NEUTROPHILS % (AUTO) 39.8 % (40.0-70.0); PLATELET COUNT (AUTO) 215 K/uL (150-450); RED BLOOD CELL COUNT(AUTO) 4.62 MIL/uL (4.00-5.20); RED CELL DISTRIBUTION WIDTH 14.4 % (11.5-14.5)
[2019-06-10 14:02] LABS: CALCIUM, TOTAL 8.3 mg/dL (8.8-10.5); CREATININE 0.96 mg/dL (0.60-1.30); POTASSIUM 3.5 mmol/L (3.5-5.1)
[2019-06-10 20:00] LABS: GLUCOMETER DEV NAME(LOC) 5S.1; GLUCOSE,POINT OF CARE 170 MG/DL (70-110)
[2019-06-10 20:00] LABS: GLUCOMETER DEV NAME(LOC) 5S.1; GLUCOSE,POINT OF CARE 307 MG/DL (70-110)
[2019-06-10] MEDS: SIMVASTATIN 40 MG TABLET PO SCH (20:22)
[2019-06-11] LABS: GLUCOMETER DEV NAME(LOC) 5N.1; GLUCOSE,POINT OF CARE 164 MG/DL (70-110)
[2019-06-11 05:10] VITALS: BP 116/70
[2019-06-11] MEDS: INSULIN LISPRO 100 UNITS/ML SQ PRN ×4 (05:55→21:14)
[2019-06-11 06:51] LABS: GLUCOMETER DEV NAME(LOC) 5N.1; GLUCOSE,POINT OF CARE 148 MG/DL (70-110)
[2019-06-11] MEDS: CefTRIAXone 1 GM/DEXTROSE 50 ML IV SCH (07:42)
[2019-06-11] MEDS: ASPIRIN 81 MG CHEWABLE TABLET PO SCH (07:43)
[2019-06-11] MEDS: CARVEDILOL 3.125 MG TABLET PO SCH ×2 (07:43→21:13)
[2019-06-11] MEDS: HEPARIN SODIUM,PORCINE 5,000 UNITS/ML VIAL SQ SCH ×3 (07:43→23:15)
[2019-06-11] MEDS: LUBIPROSTONE 8 MCG CAPSULE PO SCH ×2 (07:43→18:44)
[2019-06-11] MEDS: NITROGLYCERIN 2% (1 GM=INCH) PACKET TP SCH ×2 (07:43→16:21)
[2019-06-11] MEDS: DOCUSATE SODIUM 100 MG CAPSULE PO SCH ×2 (07:43→21:00)
[2019-06-11] MEDS: FAMOTIDINE 20 MG TABLET PO SCH (07:43)
[2019-06-11] MEDS: PANTOPRAZOLE SODIUM 40 MG DR TABLET PO SCH (07:43)
[2019-06-11 08:16] VITALS: BP 116/72
[2019-06-11 11:21] VITALS: BP 100/65
[2019-06-11 16:45] VITALS: BP 135/67
[2019-06-11 19:40] LABS: GLUCOMETER DEV NAME(LOC) 5S.1; GLUCOSE,POINT OF CARE 211 MG/DL (70-110)
[2019-06-11 20:10] VITALS: BP 104/61
[2019-06-11] MEDS: SIMVASTATIN 40 MG TABLET PO SCH (21:13)
[2019-06-11 23:04] VITALS: BP 121/68
[2019-06-12] VITALS (10 sets, daily range): BP systolic 98–138; BP diastolic 62–82
[2019-06-12 04:51] LABS: GLUCOMETER DEV NAME(LOC) 5N.2; GLUCOSE,POINT OF CARE 195 MG/DL (70-110)
[2019-06-12 04:51] LABS: GLUCOMETER DEV NAME(LOC) 5N.1; GLUCOSE,POINT OF CARE 195 MG/DL (70-110)
[2019-06-12 07:39] LABS: INR 1.1 (0.9-1.1); PROTHROMBIN TIME 10.8 SEC (9.4-11.6)
[2019-06-12 07:55] LABS: GLUCOMETER DEV NAME(LOC) 5S.2A; GLUCOSE,POINT OF CARE 167 MG/DL (70-110)
[2019-06-12] MEDS: LUBIPROSTONE 8 MCG CAPSULE PO SCH ×2 (08:00→18:00)
[2019-06-12] MEDS: HEPARIN SODIUM,PORCINE 5,000 UNITS/ML VIAL SQ SCH (08:00)
[2019-06-12] MEDS: NITROGLYCERIN 2% (1 GM=INCH) PACKET TP SCH ×4 (08:00→23:43)
[2019-06-12 08:05] LABS: BASOPHILS % (AUTO) 1.2 % (0.0-2.0); EOSINOPHILS % (AUTO) 1.8 % (1.0-6.0); HEMATOCRIT 41.4 % (36-46); HEMOGLOBIN 13.6 g/dL (12.0-16.0); LYMPHOCYTES # (AUTO) 2.3 K/uL (1.0-4.8); MEAN CORPUSCULAR HEMOGLOBIN 27.7 pg (26.0-34.0); MEAN CORPUSCULAR HGB CONC 32.8 G/dL (31.0-37.0); MEAN CORPUSCULAR VOLUME 84 fL (80-100); MONOCYTES # (AUTO) 0.4 K/uL (0.1-1.0); NEUTROPHILS # (AUTO) 2.4 K/uL (1.8-7.7); PLATELET COUNT (AUTO) 207 K/uL (150-450); RED BLOOD CELL COUNT(AUTO) 4.91 MIL/uL (4.00-5.20); RED CELL DISTRIBUTION WIDTH 14.4 % (11.5-14.5)
[2019-06-12] MEDS: CARVEDILOL 3.125 MG TABLET PO SCH ×2 (08:09→20:06)
[2019-06-12] MEDS: ASPIRIN 81 MG CHEWABLE TABLET PO SCH (08:09)
[2019-06-12] MEDS: DOCUSATE SODIUM 100 MG CAPSULE PO SCH ×2 (08:09→20:07)
[2019-06-12] MEDS: FAMOTIDINE 20 MG TABLET PO SCH (08:10)
[2019-06-12] MEDS: PANTOPRAZOLE SODIUM 40 MG DR TABLET PO SCH (08:10)
[2019-06-12 08:17] LABS: ANION GAP 8 mmol/L (8-16); CALCIUM, TOTAL 8.8 mg/dL (8.8-10.5); CARBON DIOXIDE 27 mmol/L (22-29); CHLORIDE 104 mmol/L (98-107); CREATININE 0.87 mg/dL (0.60-1.30); GLOMERULAR FILTR. RATE CALC > 60 mL/min (>60); GLUCOSE,RANDOM 179 mg/dL (70-110); POTASSIUM 3.8 mmol/L (3.5-5.1); SODIUM SERUM 139 mmol/L (136-145); UREA NITROGEN, BLOOD 5 mg/dL (7-18)
[2019-06-12] MEDS: CefTRIAXone 1 GM/DEXTROSE 50 ML IV SCH (08:30)
[2019-06-12 11:40] LABS: GLUCOMETER DEV NAME(LOC) 5N.2; GLUCOSE,POINT OF CARE 183 MG/DL (70-110)
[2019-06-12] MEDS ORDERED: MIDAZOLAM HCL 2 MG/2 ML VIAL IVP ONE (12:00)
[2019-06-12] MEDS ORDERED: FentaNYL CITRATE-PF 100 MCG/2 ML VIAL IVP ONE (12:00)
[2019-06-12] MEDS ORDERED: BUPIVACAINE HCL/PF 0.25% 10 ML VIAL ONE (13:28)
[2019-06-12] MEDS ORDERED: SODIUM BICARBONATE 50 MEQ/50 ML VIAL ONE (13:29)
[2019-06-12] MEDS ORDERED: LIDOCAINE/PF 1% 30 ML VIAL ONE ×2 (13:29→14:10)
[2019-06-12] MEDS ORDERED: BUPIVACAINE LIPOSOME/PF 1.3%-13.3MG/ML SUSPENSION 10 ML VIAL INJ ONE (13:45)
[2019-06-12] MEDS ORDERED: LIDOCAINE 1% 30 ML/SOD BICARB 8.4% 4 ML SQ ONE ×2 (14:06→14:10)
[2019-06-12] MEDS: INSULIN LISPRO 100 UNITS/ML SQ PRN ×2 (17:40→20:11)
[2019-06-12 20:00] LABS: GLUCOMETER DEV NAME(LOC) 5N.1; GLUCOSE,POINT OF CARE 190 MG/DL (70-110)
[2019-06-12] MEDS: SIMVASTATIN 40 MG TABLET PO SCH (20:06)
[2019-06-12] MEDS: CeFAZolin 1 GM/DEXTROSE 50 ML IV SCH (20:06)
[2019-06-12 20:30] LABS: GLUCOMETER DEV NAME(LOC) 5S.2A; GLUCOSE,POINT OF CARE 242 MG/DL (70-110)
[2019-06-13] MEDS: CeFAZolin 1 GM/DEXTROSE 50 ML IV SCH ×2 (04:48→12:25)
[2019-06-13 04:55] VITALS: BP 111/73
[2019-06-13] MEDS: INSULIN LISPRO 100 UNITS/ML SQ PRN ×3 (06:29→21:04)
[2019-06-13 06:46] LABS: GLUCOMETER DEV NAME(LOC) 5S.1; GLUCOSE,POINT OF CARE 170 MG/DL (70-110)
[2019-06-13] MEDS: NITROGLYCERIN 2% (1 GM=INCH) PACKET TP SCH ×3 (08:00→23:25)
[2019-06-13] MEDS: LUBIPROSTONE 8 MCG CAPSULE PO SCH ×2 (08:00→17:14)
[2019-06-13 08:21] VITALS: BP 107/77
[2019-06-13] MEDS: ASPIRIN 81 MG CHEWABLE TABLET PO SCH (09:00)
[2019-06-13] MEDS: DOCUSATE SODIUM 100 MG CAPSULE PO SCH ×2 (09:00→20:46)
[2019-06-13] MEDS: FAMOTIDINE 20 MG TABLET PO SCH (09:00)
[2019-06-13] MEDS: CARVEDILOL 3.125 MG TABLET PO SCH ×2 (09:00→20:46)
[2019-06-13] MEDS: PANTOPRAZOLE SODIUM 40 MG DR TABLET PO SCH (09:00)
[2019-06-13 11:38] VITALS: BP 129/74
[2019-06-13] MEDS: CefTRIAXone 1 GM/DEXTROSE 50 ML IV SCH (13:31)
[2019-06-13 16:07] VITALS: BP 133/84
[2019-06-13 19:50] VITALS: BP 122/79
[2019-06-13] MEDS: SIMVASTATIN 40 MG TABLET PO SCH (20:46)
[2019-06-14 00:09] VITALS: BP 104/56
[2019-06-14 02:15] LABS: GLUCOMETER DEV NAME(LOC) 5N.1; GLUCOSE,POINT OF CARE 208 MG/DL (70-110)
[2019-06-14 04:22] VITALS: BP 124/75
[2019-06-14 05:56] LABS: GLUCOMETER DEV NAME(LOC) 5S.1; GLUCOSE,POINT OF CARE 225 MG/DL (70-110)
[2019-06-14 05:56] LABS: GLUCOMETER DEV NAME(LOC) 5S.1; GLUCOSE,POINT OF CARE 123 MG/DL (70-110)
[2019-06-14] MEDS: INSULIN LISPRO 100 UNITS/ML SQ PRN ×4 (06:20→21:10)
[2019-06-14 08:00] VITALS: BP 112/72
[2019-06-14] MEDS: FAMOTIDINE 20 MG TABLET PO SCH (08:42)
[2019-06-14] MEDS: PANTOPRAZOLE SODIUM 40 MG DR TABLET PO SCH (08:42)
[2019-06-14] MEDS: LUBIPROSTONE 8 MCG CAPSULE PO SCH ×2 (08:42→18:39)
[2019-06-14] MEDS: ASPIRIN 81 MG CHEWABLE TABLET PO SCH (08:43)
[2019-06-14] MEDS: CARVEDILOL 3.125 MG TABLET PO SCH ×3 (09:00→20:49)
[2019-06-14] MEDS: DOCUSATE SODIUM 100 MG CAPSULE PO SCH ×2 (09:00→20:49)
[2019-06-14] MEDS: NITROGLYCERIN 2% (1 GM=INCH) PACKET TP SCH ×3 (09:27→23:14)
[2019-06-14] MEDS: CefTRIAXone 1 GM/DEXTROSE 50 ML IV SCH (09:28)
[2019-06-14 10:16] LABS: CALCIUM, TOTAL 7.9 mg/dL (8.8-10.5); CREATININE 1.1 mg/dL (0.60-1.30); POTASSIUM 3.5 mmol/L (3.5-5.1)
[2019-06-14 10:21] LABS: BASOPHILS % (AUTO) 0.7 % (0.0-2.0); EOSINOPHILS % (AUTO) 0.9 % (1.0-6.0); HEMATOCRIT 38.3 % (36-46); HEMOGLOBIN 12.6 g/dL (12.0-16.0); LYMPHOCYTES # (AUTO) 2.2 K/uL (1.0-4.8); LYMPHOCYTES % (AUTO) 36.6 % (22.0-44.0); MEAN CORPUSCULAR HGB CONC 32.8 G/dL (31.0-37.0); MEAN CORPUSCULAR VOLUME 86 fL (80-100); MONOCYTES # (AUTO) 0.7 K/uL (0.1-1.0); MONOCYTES % (AUTO) 11.6 % (2.0-9.0); NEUTROPHILS % (AUTO) 50.2 % (40.0-70.0); PLATELET COUNT (AUTO) 201 K/uL (150-450); RED BLOOD CELL COUNT(AUTO) 4.49 MIL/uL (4.00-5.20); RED CELL DISTRIBUTION WIDTH 14.6 % (11.5-14.5)
[2019-06-14 11:03] VITALS: BP 128/73
[2019-06-14 11:47] LABS: GLUCOMETER DEV NAME(LOC) 5N.1; GLUCOSE,POINT OF CARE 207 MG/DL (70-110)
[2019-06-14 14:46] LABS: GLUCOMETER DEV NAME(LOC) 5N.2; GLUCOSE,POINT OF CARE 343 MG/DL (70-110)
[2019-06-14 15:00] VITALS: BP 116/63
[2019-06-14 20:10] VITALS: BP 111/65
[2019-06-14] MEDS: SIMVASTATIN 40 MG TABLET PO SCH (20:49)
[2019-06-15 00:26] VITALS: BP 121/80
[2019-06-15 04:25] VITALS: BP 114/73
[2019-06-15 06:17] LABS: GLUCOMETER DEV NAME(LOC) 5S.1; GLUCOSE,POINT OF CARE 214 MG/DL (70-110)
[2019-06-15 06:17] LABS: EOSINOPHILS % (AUTO) 1.9 % (1.0-6.0); HEMATOCRIT 40.1 % (36-46); HEMOGLOBIN 13.2 g/dL (12.0-16.0); LYMPHOCYTES # (AUTO) 2.7 K/uL (1.0-4.8); LYMPHOCYTES % (AUTO) 44.7 % (22.0-44.0); MEAN CORPUSCULAR HEMOGLOBIN 27.9 pg (26.0-34.0); MEAN CORPUSCULAR HGB CONC 32.8 G/dL (31.0-37.0); MEAN CORPUSCULAR VOLUME 85 fL (80-100); MONOCYTES # (AUTO) 0.6 K/uL (0.1-1.0); MONOCYTES % (AUTO) 9.8 % (2.0-9.0); NEUTROPHILS # (AUTO) 2.5 K/uL (1.8-7.7); NEUTROPHILS % (AUTO) 42.6 % (40.0-70.0); PLATELET COUNT (AUTO) 208 K/uL (150-450); RED BLOOD CELL COUNT(AUTO) 4.71 MIL/uL (4.00-5.20); RED CELL DISTRIBUTION WIDTH 14.9 % (11.5-14.5)
[2019-06-15 06:29] LABS: PROTHROMBIN TIME 9.7 SEC (9.4-11.6)
[2019-06-15 06:42] LABS: ANION GAP 5 mmol/L (8-16); CALCIUM, TOTAL 8.2 mg/dL (8.8-10.5); CARBON DIOXIDE 26 mmol/L (22-29); CHLORIDE 104 mmol/L (98-107); CREATININE 0.84 mg/dL (0.60-1.30); GLOMERULAR FILTR. RATE CALC > 60 mL/min (>60); GLUCOSE,RANDOM 200 mg/dL (70-110); POTASSIUM 3.9 mmol/L (3.5-5.1); SODIUM SERUM 135 mmol/L (136-145); UREA NITROGEN, BLOOD 11 mg/dL (7-18)
[2019-06-15] MEDS: INSULIN LISPRO 100 UNITS/ML SQ PRN ×2 (07:03→11:46)
[2019-06-15 07:36] LABS: GLUCOMETER DEV NAME(LOC) 5S.2A; GLUCOSE,POINT OF CARE 161 MG/DL (70-110)
[2019-06-15] MEDS: LUBIPROSTONE 8 MCG CAPSULE PO SCH (08:00)
[2019-06-15 08:31] VITALS: BP 124/69
[2019-06-15] MEDS: FAMOTIDINE 20 MG TABLET PO SCH (09:00)
[2019-06-15] MEDS: DOCUSATE SODIUM 100 MG CAPSULE PO SCH (09:00)
[2019-06-15] MEDS: ASPIRIN 81 MG CHEWABLE TABLET PO SCH (09:00)
[2019-06-15] MEDS: PANTOPRAZOLE SODIUM 40 MG DR TABLET PO SCH (09:20)
[2019-06-15] MEDS: CARVEDILOL 3.125 MG TABLET PO SCH (09:20)
[2019-06-15] MEDS: CefTRIAXone 1 GM/DEXTROSE 50 ML IV SCH (09:20)
[2019-06-15] MEDS: NITROGLYCERIN 2% (1 GM=INCH) PACKET TP SCH (09:21)
[2019-06-15] MEDS ORDERED: SODIUM CHLORIDE 0.9% 250 ML IV ONE (09:32)
[2019-06-15 11:25] VITALS: BP 95/61
[2019-06-15 11:31] LABS: GLUCOMETER DEV NAME(LOC) 5N.2; GLUCOSE,POINT OF CARE 208 MG/DL (70-110)
[2019-06-15] MEDS ORDERED: CEFT1VIA15 IV (12:46)
[2019-06-15] MEDS ORDERED: FAMO20 PO (12:46)
[2019-06-15] MEDS ORDERED: NTP TD (12:47)
[2019-06-15] MEDS ORDERED: PANT40TA25 PO (12:47)
[2019-06-15] MEDS ORDERED: ACET-2247 PO (12:48)
[2019-06-15] MEDS ORDERED: MOM30 PO (12:49)
[2019-06-15] MEDS ORDERED: MORP2CAR IV (12:52)
[2019-06-15] MEDS ORDERED: ONDA220I IV (12:54)
[2019-06-15 13:37] LABS: GLUCOMETER DEV NAME(LOC) 5N.1; GLUCOSE,POINT OF CARE 192 MG/DL (70-110)
[2019-06-15 15:03] VITALS: BP 97/57
== END 2019-06-15 16:50 | disposition short-term general hospital (02) | DRG 245 ==
LOC: EMS 15:51 → 5S 18:48
PROVIDERS: ADMIT Internal Medicine; ATTEND Internal Medicine
PROC: 4B02XTZ Measurement of Cardiac Defibrillator, External Approach (ICD-10-PCS; 2019-06-09)
PROC: 0JPT0PZ Removal of Cardiac Rhythm Related Device from Trunk Subcutaneous Tissue and Fascia, Open Approach (ICD-10-PCS; principal; 2019-06-12)
PROC: 0JH609Z Insertion of Cardiac Resynchronization Defibrillator Pulse Generator into Chest Subcutaneous Tissue and Fascia, Open Approach (ICD-10-PCS; 2019-06-12)
PROC: 4B02XTZ Measurement of Cardiac Defibrillator, External Approach (ICD-10-PCS; 2019-06-13)
DX: T82.119A Breakdown (mechanical) of unspecified cardiac electronic device, initial encounter (principal); K85.90 Acute pancreatitis without necrosis or infection, unspecified; I47.2 Ventricular tachycardia; I42.8 Other cardiomyopathies; I50.22 Chronic systolic (congestive) heart failure; I11.0 Hypertensive heart disease with heart failure; E11.9 Type 2 diabetes mellitus without complications; I48.91 Unspecified atrial fibrillation; E78.00 Pure hypercholesterolemia, unspecified; E78.5 Hyperlipidemia, unspecified; Y71.2 Prosthetic and other implants, materials and accessory cardiovascular devices associated with adverse incidents; F20.9 Schizophrenia, unspecified; I25.10 Atherosclerotic heart disease of native coronary artery without angina pectoris; J44.9 Chronic obstructive pulmonary disease, unspecified; K58.9 Irritable bowel syndrome, unspecified; Z95.810 Presence of automatic (implantable) cardiac defibrillator; I25.2 Old myocardial infarction; Y92.89 Other specified places as the place of occurrence of the external cause; Z79.4 Long term (current) use of insulin; Z82.49 Family history of ischemic heart disease and other diseases of the circulatory system; Z83.3 Family history of diabetes mellitus; Z91.19 Patient's noncompliance with other medical treatment and regimen; Z78.1 Physical restraint status; Z88.8 Allergy status to other drugs, medicaments and biological substances; Z79.899 Other long term (current) drug therapy; Z79.82 Long term (current) use of aspirin
CPT/HCPCS: 33240; 76700; 83735; 84439; 84443; 87086; 88300; 93005; 93306; 96365; 96375; G0378; J0690; J0696; J1644; J2250; J2270; J2405; J3010; J3490; J7050